=== PATIENT | female | born 1960 | race Caucasian/White ===

== ENCOUNTER 2018-05-12 19:19 | Inpatient (IN) | payer OTHER ==
--- OUTSIDE RECORDS SUMMARY | 2018-05-12 19:22 | XMS REPORT | Clinical Summary ---
:1960 Author Organization [facility] Address [address] [place] [address] Care Team Providers Name Role Phone Ron Xiong MD Primary Care Provider Allergies Active Allergy Reactions Severity Noted Date Comments Adhesive Tape-Silicones Rash Low 10/18/2015 Medications Medication Sig Dispensed Refills Start Date End Date Status glimepiride (AMARYL) Take 4 mg by 4 08/27/2015 Active 4 MG tablet mouth every morning. TOUJEO SOLOSTAR 300 Inject 12 3 09/23/2015 Active unit/mL (1.5 mL) Units under insulin pen the skin every evening. metFORMIN Take 500 mg 0 Active (GLUCOPHAGE) 500 MG by mouth 2 tablet (two) times a day with meals. ASCORBATE CALCIUM Take by 0 Active (VITAMIN C ORAL) mouth. FERROUS FUMARATE Take by 0 Active (IRON ORAL) mouth. CHOLECALCIFEROL, Take by 0 Active VITAMIN D3, (VITAMIN mouth. D3 ORAL) rosuvastatin 0 05/01/2018 Active (CRESTOR) 5 MG tablet semaglutide INJECT 1 MG 0 11/15/2017 Active (OZEMPIC) 1 mg/0.75 ONCE A WEEK mL (2 mg/1.5 mL) pen injector lisinopril Take 10 mg by 1 03/14/2018 Active (PRINIVIL,ZESTRIL) mouth daily. 10 mg tablet empagliflozin 25 mg Take by 0 Active tablet mouth. FARXIGA 10 mg tablet Take 1 tablet 3 09/21/2015 05/06/2018 Discontinued by mouth nightly. TRULICITY 1.5 mg/0.5 Inject 0.75 2 09/28/2015 05/06/2018 Discontinued mL pen injector Units under the skin once a week. ON Mondays Active Problems Problem Noted Date History of breast cancer 11/27/2015 Encounters Date Type Specialty Care Team Description 05/12/2018 Orders Only General Surgery Amanda Goncalves MA 05/06/2018 Office Visit General Surgery Ron Xiong MD Morbid obesity due to excess calories (HCC) (Primary Dx); Essential hypertension; Type 2 diabetes mellitus without complication, without long-term current use of insulin (HCC) 05/06/2018 Orders Only General Surgery Amanda Goncalves MA 05/06/2018 Orders Only General Surgery Amanda Goncalves MA Obesity (BMI 30-39.9 ) (Primary Dx); Type 2 diabetes mellitus with hyperosmolarity without coma, without long-term current use of insulin (HCC); Hyperlipidemia associated with type 2 diabetes mellitus (HCC); Essential hypertension, benign after 05/11/2017 Family History Medical History Relation Name Comments Diabetes Father Heart disease Father Cancer Mother Relation Name Status Comments Brother Alive heart attack Father Mother non hodgkins Social History Tobacco Use Types Packs/Day Years Used Date Never Smoker Smokeless Tobacco: Never Used Alcohol Use Drinks/Week oz/Week Comments Yes 3 drinks per week Sex Assigned at Date Recorded Not on file Job Start Date Occupation Industry Not on file Not on file Not on file Travel History Travel Start Travel End No recent travel history available. Last Filed Vital Signs Vital Sign Reading Time Taken Blood Pressure 151/86 05/06/2018 9:25 AM [employer] Pulse 69 05/06/2018 9:25 AM [employer] Temperature 36.6 C (97.9 F) 05/06/2018 9:25 AM [employer] Respiratory Rate 16 05/06/2018 9:25 AM [employer] Oxygen Saturation 97% 05/06/2018 9:25 AM [employer] Inhaled Oxygen Concentration - - Weight 105 kg (232 lb 4.8 oz) 05/06/2018 9:25 AM [employer] Height 162.6 cm (5' 4") 05/06/2018 9:25 AM [employer] Body Mass Index 39.87 05/06/2018 9:25 AM [employer] Plan of Treatment Date Type Specialty Care Team Description 06/01/2018 Consult Weight Management Ron Xiong MD [address] [facility] [address] [place] [id number] Dona Hooker 06/01/2018 Consult Weight Management Ron Xiong MD [address] [address] [phone] Health Maintenance Due Date Last Done Comments DIABETIC RETINAL EYE EXAM 1960 DIABETIC FOOT EXAM 12/30/1969 URINE MICROALBUMIN 12/30/1969 CERVICAL CANCER SCREENING 12/30/1980 COLON CANCER SCREENING 12/30/2009 SHINGLES VACCINES (1 of 2) 12/30/2009 BREAST CANCER SCREENING 03/29/2015 03/29/2013 INFLUENZA VACCINE 10/27/2017 Procedures Procedure Name Priority Date/Time Associated Diagnosis Comments US ABDOMEN COMPLETE Routine 05/11/2018 11:00 AM Obesity (BMI Results for this [employer] 30-39.9) procedure are in the results section. after 05/11/2017 Results US Abdomen Complete (05/11/2018 11:00 AM [employer]) Narrative Performed At EXAM: US ABDOMEN COMPLETE [facility] CLINICAL HISTORY:E66.9 Obesityunspecified, preop evaluation COMPARISON: CT abdomen, 07/27/2014 TECHNIQUE: Complete abdominal ultrasound obtained. FINDINGS: Diffuse moderate fatty liver, new from prior. No suspicious hepatic lesion. Mild focal sparing adjacent to gallbladder. .Numerous stones in the gallbladder measuring up to 2.5 cm. No evidence of acute cholecystitis. .Gallbladder is borderline distended, likely from fasting. Common bile duct 6.5 mm, borderline dilated. Main portal vein is patent and normal in size, 12 mm. . A 0.9 cm hypoechoic lesion in the head of pancreas, image 1536, was not evident on 2014 CT. Further evaluation by pancreas focus CT abdomen with and without IV contrast is advised. The majority of the remainder the pancreas is obscured by bowel gas. As a result, the pancreatic duct cannot be adequately assessed on this exam.obscured by bowel gas.Spleen demonstrates nothing unusual. Renal survey images show kidneys measure 11.8cm on the right and 11.2cm on the left with no hydronephrosis on either side. Visualized portions of abdominal aorta and IVC unremarkable.No ascites or pleural effusion identified. IMPRESSION: 1. Indeterminant 0.9 cm pancreatic head lesion, pancreas cancer is not excluded, and further evaluation by CT abdomen with and without IV contrast per pancreas protocol is recommended. 2.Moderate fatty liver. Cholelithiasis without evidence of acute cholecystitis. [id number] Procedure Note Interface, Radiology Results Incoming - 05/11/2018 11:47 AM [employer] EXAM: US ABDOMEN COMPLETE CLINICAL HISTORY: E66.9 Obesity unspecified, preop evaluation COMPARISON: CT abdomen, 07/27/2014 TECHNIQUE: Complete abdominal ultrasound obtained. FINDINGS: Diffuse moderate fatty liver, new from prior. No suspicious hepatic lesion. Mild focal sparing adjacent to gallbladder. . Numerous stones in the gallbladder measuring up to 2.5 cm. No evidence of acute cholecystitis. . Gallbladder is borderline distended, likely from fasting. Common bile duct 6.5 mm, borderline dilated. Main portal vein is patent and normal in size, 12 mm. . A 0.9 cm hypoechoic lesion in the head of pancreas, image 1536, was not evident on 2014 CT. Further evaluation by pancreas focus CT abdomen with and without IV contrast is advised. The majority of the remainder the pancreas is obscured by bowel gas. As a result, the pancreatic duct cannot be adequately assessed on this exam. obscured by bowel gas. Spleen demonstrates nothing unusual. Renal survey images show kidneys measure 11.8 cm on the right and 11.2 cm on the left with no hydronephrosis on either side. Visualized portions of abdominal aorta and IVC unremarkable. No ascites or pleural effusion identified. IMPRESSION: 1. Indeterminant 0.9 cm pancreatic head lesion, pancreas cancer is not excluded, and further evaluation by CT abdomen with and without IV contrast per pancreas protocol is recommended. 2. Moderate fatty liver. Cholelithiasis without evidence of acute cholecystitis. [id number] Performing Organization Address City/State/Zipcode Phone Number [facility] [address] [place] [address] after 05/11/2017 Insurance Payer Benefit Plan / Group Subscriber ID Type Phone Address [facility] UMR-[id number] MULTISTATE IEBP xxxxxxxxxxxx PPO Jo Ann Conner Reconstructive Self 1960 [address] Surgery [address] (Home) [place] [address] Advance Directives Patient has advance care planning documents on file. For more information, please contact:[id number] [place] [address]
[2018-05-12 20:37] LABS: Absolute Monocytes 0.3 K/uL (0.1-1.3); Absolute Neutrophil 12.7 K/uL (1.8-8.0); Basophils % 0.3 % (0-1.3); Lymphocytes % 7.2 % (15.3-44.8); Monocytes % 2.2 % (3.3-12.3); RBC Red Blood Cell Count 5.36 M/uL (3.86-4.86)
[2018-05-12] MEDS ORDERED: MORPHINE 4 MG/ML SYR ONE (20:42)
[2018-05-12] MEDS ORDERED: PIPER/TAZO/NS 3.375gm 3.375 GM/100 ML BAG ONE (20:42)
[2018-05-12] MEDS ORDERED: ONDANSETRON 4 MG/2 ML VIAL ONE (20:42)
[2018-05-12 20:59] LABS: Albumin 4.2 g/dL (3.4-5.0); Bilirubin Total 0.6 mg/dL (0.2-1.0); Potassium 3.6 mmol/L (3.5-5.1); Protein, Total 8.1 g/dL (6.4-8.2)
[2018-05-12 21:06] LABS: Blood Morphology Comment NOT SEEN (NOT SEEN); Platelet Estimate ADEQ
--- NOTE | 2018-05-12 21:08 | EDPHYS ---
Physician Documentation [facility] Name: Jo Ann Conner Age: 57 yrs Sex: Female : 1960 Arrival Date: 05/12/2018 Time: 19:29 Bed 26 Private MD: ED Physician Rikki De La Torre HPI: 05/12 20:09 This 57 yrs old Female presents to ER via Unassigned with complaints of Hand jmm Swelling, Hand Pain. 20:09 The patient or guardian complains of pain, that is acute, swelling. Onset: The jmm symptoms/episode began/occurred today. Treatment prior to arrival includes: no previous treatment. This is a 57 year old female with a history of lymphedema that presents to the ED with complaints of swelling, redness and pain to her right arm beginning earlier today. Patient states she has been treated for cellulitis in the past. . Historical: - Allergies: 21:24 No Known Allergies; ca1 - Home Meds: 21:24 lisinopril 10 mg Oral tab 1 tab once daily [Active]; rosuvastatin 5 mg oral tab 2 tabs ca1 once daily [Active]; glimepiride 4 mg Oral tab 1 tab once daily [Active]; Ozempic 1 Mg dose pen pen 1 Injector once a week [Active]; Toujeo Solostar 300u/ml 26 unit nightly [Active]; - PMHx: 21:24 Hyperlipidemia; Hypertension; Diabetes - IDDM; Breast Cancer; ca1 - PSHx: 21:24 Hysterectomy; Mastectomy, Left; Mastectomy, Right; ca1 - Immunization history:: Pneumococcal vaccine is up to date, Flu vaccine is up to date. - Social history:: Smoking status: Patient/guardian denies using tobacco. - Ebola Screening: : Patient negative for fever greater than or equal to 101.5 degrees Fahrenheit, and additional compatible Ebola Virus Disease symptoms Patient denies exposure to infectious person Patient denies travel to an Ebola-affected area in the 21 days before illness onset. ROS: 20:09 Constitutional: Negative for fever, chills, and weight loss, Cardiovascular: Negative jmm for chest pain, palpitations, and edema, Respiratory: Negative for shortness of breath, cough, wheezing, and pleuritic chest pain. 20:09 MS/extremity: Positive for erythema, swelling. 20:09 Skin: Positive for erythema. 20:09 All other systems are negative. Exam: 20:09 Head/Face: atraumatic. Eyes: EOMI, no conjunctival erythema appreciated ENT: Moist [facility] Mucus Membranes Neck: Trachea midline, Supple Chest/axilla: Normal chest wall appearance and motion. Cardiovascular: Regular rate and rhythm. No edema appreciated Respiratory: Normal respirations, no respiratory distress appreciated Abdomen/GI: Non distended, soft Back: Normal ROM 20:09 Constitutional: The patient appears alert, awake, anxious, uncomfortable. 20:09 Neck: ROM/movement: is normal. 20:09 Respiratory: the patient does not display signs of respiratory distress, Respirations: normal, Breath sounds: are clear throughout. 20:09 Musculoskeletal/extremity: edema appreciated to the right forearm, full radial pulse, NVI. 20:09 Skin: erythema noted to the right hand extending to the entire forearm, diffusely tender to palpation. 20:09 Neuro: Orientation: is normal, Mentation: is normal, Memory: is normal. 20:09 Psych: Behavior/mood is pleasant, cooperative, anxious. Vital Signs: 20:32 BP 150 / 102; Pulse 141; Resp 18 S; Pulse Ox 100% on R/A; rv 21:51 BP 132 / 78; Pulse 126; Resp 18; Temp 98.6; Pulse Ox 95% ; lt1 22:30 BP 108 / 74; Pulse 118; Resp 21; Pulse Ox 100% ; rv 23:21 Weight 104.33 kg; rv MDM: 20:09 Patient medically screened. [facility] 21:05 Data reviewed: vital signs, nurses notes. Counseling: I had a detailed discussion with [facility] the patient and/or guardian regarding: the historical points, exam findings, and any diagnostic results supporting the discharge/admit diagnosis, lab results, radiology results, the need for further work-up and treatment in the hospital. ED course: I discussed the patient with Dr. Cabezas whom accepted admission. . 05/12 20:10 Order name: CBC with Diff; Complete Time: 21:39 [facility] 05/12 20:10 Order name: CMP; Complete Time: 21:02 [facility] 05/12 20:10 Order name: Procalcitonin; Complete Time: 21:39 [facility] 05/12 20:10 Order name: Lactate; Complete Time: 21:03 [facility] 05/12 20:10 Order name: Blood Culture Adult (2) [facility] 05/12 20:10 Order name: US Extremity Venous Unilateral Ltd [facility] 05/12 20:17 Order name: UPPER EXTREMITY VENOUS UNILATE [facility] 05/12 21:01 Order name: Manual Differential; Complete Time: 21:39 [facility] 05/12 22:13 Order name: Basic Metabolic Panel [facility] 05/12 22:13 Order name: Basic Metabolic Panel [facility] 05/12 22:13 Order name: CBC with Automated Diff [facility] 05/12 22:13 Order name: CBC with Automated Diff [facility] 05/12 20:10 Order name: Saline Lock; Complete Time: 20:47 [facility] 05/12 22:13 Order name: CONS Pharmacy Consult [facility] 05/12 22:13 Order name: Regular EDMS Administered Medications: 20:20 Drug: Zosyn 3.375 grams Route: IVPB; Infused Over: 60 mins; Site: left antecubital; rv 21:57 Follow up: IV Status: Completed infusion rv 20:20 Drug: morphine 4 mg Route: IVP; Site: left antecubital; rv 21:57 Follow up: Response: No adverse reaction rv 21:57 Follow up: Response: Pain is decreased rv 20:20 Drug: Zofran 4 mg Route: IVP; Site: left antecubital; rv 21:57 Follow up: Response: No adverse reaction rv 21:56 Drug: vancoMYCIN 1 grams Route: IVPB; Infused Over: 2 hrs; Site: left antecubital; rv 23:23 Follow up: IV Status: Completed infusion rv 22:30 Drug: NS 0.9% (30 ml/kg) 30 ml/kg Route: IV; Rate: bolus; Site: left antecubital; rv 23:22 Follow up: IV Status: Infusion continued upon admission rv Disposition: 05/13 06:19 Co-signature as Attending Physician, Rikki De La Torre MD I agree with the assessment and 4 plan of care. Disposition: 05/12/18 21:07 Hospitalization ordered by Milan Cabezas for Observation. Preliminary diagnosis is Cellulitis of right upper limb. - Bed requested for Telemetry/MedSurg (observation). - Status is Observation. rv - Condition is Stable. - Problem is an acute exacerbation. - Symptoms are unchanged. UTI on Admission? No Signatures: Dispatcher [employer] EDMS Sue Ferreira RN RN mw Anand Odonnell PA PA jmm Wadley, Terrence, MD MD tw4 Ilya Patel, RN RN rv Sailaja Dumont RN RN ca1 Corrections: (The following items were deleted from the chart) 05/12 21:01 20:40 CBC Smear Scan ordered. EDMS EDMS 21:25 21:24 Immunization history: Pneumococcal vaccine is up to date, Flu vaccine is up to ca1 date. ca1 21:25 21:24 Social history: Smoking status: Patient/guardian denies using tobacco, ca1 ca1 :25 21:24 Ebola Screening: Patient negative for fever greater than or equal to 101.5 ca1 degrees Fahrenheit, and additional compatible Ebola Virus Disease symptoms Patient denies exposure to infectious person Patient denies travel to an Ebola-affected area in the 21 days before illness onset ca1 22:27 21:07 Hospitalization Ordered by Milan Cabezas MD for Observation. Preliminary mw diagnosis is Cellulitis of right upper limb. Bed requested for Telemetry/MedSurg (observation). Status is Observation. Condition is Stable. Problem is an acute exacerbation. Symptoms are unchanged. UTI on Admission? No. [facility] 23:48 22:27 05/12/2018 21:07 Hospitalization Ordered by Milan Cabezas MD for Observation. rv Preliminary diagnosis is Cellulitis of right upper limb. Bed requested for Telemetry/MedSurg (observation). Status is Observation. Condition is Stable. Problem is an acute exacerbation. Symptoms are unchanged. UTI on Admission? No. mw
--- NOTE | 2018-05-12 21:08 | ER ---
Nurse's Notes [facility] Name: Jo Ann Conner Age: 57 yrs Sex: Female : 1960 Arrival Date: 05/12/2018 Time: 19:29 Bed 26 Private MD: Diagnosis: Cellulitis of right upper limb Presentation: 05/12 19:50 Presenting complaint: Patient states: "I have lymphadema on my R arm. It is swelling ca1 and painful". Transition of care: patient was not received from another setting of care. Onset of symptoms was May 12, 2018. 19:50 Method Of Arrival: Wheelchair ca1 19:50 Acuity: JHOANA 3 ca1 21:13 Risk Assessment: Do you want to hurt yourself or someone else? Patient reports no rv desire to harm self or others. Initial Sepsis Screen: Does the patient meet any 2 criteria? No. Patient's initial sepsis screen is negative. Does the patient have a suspected source of infection? No. Patient's initial sepsis screen is negative. Care prior to arrival: None. Historical: - Allergies: 21:24 No Known Allergies; ca1 - Home Meds: 21:24 lisinopril 10 mg Oral tab 1 tab once daily [Active]; rosuvastatin 5 mg oral tab 2 tabs ca1 once daily [Active]; glimepiride 4 mg Oral tab 1 tab once daily [Active]; Ozempic 1 Mg dose pen pen 1 Injector once a week [Active]; Toujeo Solostar 300u/ml 26 unit nightly [Active]; - PMHx: 21:24 Hyperlipidemia; Hypertension; Diabetes - IDDM; Breast Cancer; ca1 - PSHx: 21:24 Hysterectomy; Mastectomy, Left; Mastectomy, Right; ca1 - Immunization history:: Pneumococcal vaccine is up to date, Flu vaccine is up to date. - Social history:: Smoking status: Patient/guardian denies using tobacco. - Ebola Screening: : Patient negative for fever greater than or equal to 101.5 degrees Fahrenheit, and additional compatible Ebola Virus Disease symptoms Patient denies exposure to infectious person Patient denies travel to an Ebola-affected area in the 21 days before illness onset. Screenin:13 Abuse screen: Denies threats or abuse. Denies injuries from another. Nutritional rv screening: No deficits noted. Tuberculosis screening: No symptoms or risk factors identified. Fall Risk None identified. Assessment: 21:12 General: Appears in no apparent distress. comfortable, Behavior is calm, cooperative. rv Pain: Complains of pain in right arm. Neuro: Level of Consciousness is awake, alert, obeys commands, Oriented to person, place, time, situation. Cardiovascular: Capillary refill < 3 seconds. Respiratory: Airway is patent. GI: No signs and/or symptoms were reported involving the gastrointestinal system. : No signs and/or symptoms were reported regarding the genitourinary system. EENT: No signs and/or symptoms were reported regarding the EENT system. Derm: Skin is intact. Musculoskeletal: No signs and/or symptoms reported regarding the musculoskeletal system. Vital Signs: 20:32 BP 150 / 102; Pulse 141; Resp 18 S; Pulse Ox 100% on R/A; rv 21:51 BP 132 / 78; Pulse 126; Resp 18; Temp 98.6; Pulse Ox 95% ; lt1 22:30 BP 108 / 74; Pulse 118; Resp 21; Pulse Ox 100% ; rv 23:21 Weight 104.33 kg; rv ED Course: 19:29 Patient arrived in ED. es 19:50 Arm band placed on right wrist. EKG completed in triage. Results shown to MD. ca1 19:56 Anand Odonnell PA is PHCP. jmm 19:56 Rikki De La Torre MD is Attending Physician. jmm 20:13 Sailaja Dumont, TATE is Primary Nurse. ca1 20:20 Inserted saline lock: 20 gauge in left antecubital area, using aseptic technique. Blood rv collected. 20:47 Blood Culture Adult (2) Sent. rv 20:50 EKG completed in triage. Results shown to MD. ca1 21:04 UPPER EXTREMITY VENOUS UNILATE In Process Unspecified. EDMS 21:07 Milan Cabezas MD is Hospitalizing Provider. jmm 21:13 Patient has correct armband on for positive identification. Bed in low position. Call rv light in reach. Side rails up X2. Adult w/ patient. conveyor monitor on. Pulse ox on. NIBP on. 21:17 Triage completed. ca1 23:47 No provider procedures requiring assistance completed. Patient admitted, IV remains in rv place. intact. Administered Medications: 20:20 Drug: Zosyn 3.375 grams Route: IVPB; Infused Over: 60 mins; Site: left antecubital; rv 21:57 Follow up: IV Status: Completed infusion rv 20:20 Drug: morphine 4 mg Route: IVP; Site: left antecubital; rv 21:57 Follow up: Response: No adverse reaction rv 21:57 Follow up: Response: Pain is decreased rv 20:20 Drug: Zofran 4 mg Route: IVP; Site: left antecubital; rv 21:57 Follow up: Response: No adverse reaction rv 21:56 Drug: vancoMYCIN 1 grams Route: IVPB; Infused Over: 2 hrs; Site: left antecubital; rv 23:23 Follow up: IV Status: Completed infusion rv 22:30 Drug: NS 0.9% (30 ml/kg) 30 ml/kg Route: IV; Rate: bolus; Site: left antecubital; rv 23:22 Follow up: IV Status: Infusion continued upon admission rv Outcome: 21:07 Decision to Hospitalize by Provider. anastasia 23:47 Admitted to Tele accompanied by tech, via wheelchair, room 413, with chart, Report rv called to BRYCE YBARRA 23:47 Condition: good 23:47 Discharge instructions given to patient, Instructed on the need for admit, Demonstrated understanding of instructions. 23:48 Patient left the ED. rv Signatures: Dispatcher [employer] EDMS Anand Odonnell PA PA jmm Salyer, Edna es Vicente, Ronaldo RN RN Sailaja Judd RN RN ca1 Tran, Leah lt1 Corrections: (The following items were deleted from the chart) 21:25 21:24 Immunization history: Pneumococcal vaccine is up to date, Flu vaccine is up to ca1 date. ca1 21:25 21:24 Social history: Smoking status: Patient/guardian denies using tobacco, ca1 ca1 21:25 21:24 Ebola Screening: Patient negative for fever greater than or equal to 101.5 ca1 degrees Fahrenheit, and additional compatible Ebola Virus Disease symptoms Patient denies exposure to infectious person Patient denies travel to an Ebola-affected area in the 21 days before illness onset ca1 21:27 20:50 Arm band placed on right wrist. ca1 ca1 21:27 20:50 EKG completed in triage. Results shown to MD. ca1 ca1
[2018-05-12] MEDS ORDERED: VANCOMYCIN 1 GM/250 ML BAG ONE (21:56)
[2018-05-12] MEDS ORDERED: HYDROMORPHONE HCL 1 MG/ML INJ IV PRN (22:08)
[2018-05-12] MEDS ORDERED: NA CHLORIDE 0.9% 1,000 ML IV SCH (23:00)
[2018-05-13] MEDS: AMPICILLIN/SULBACT 3 GM in NA CHLORIDE 0.9% 100 ML IVPB SCH ×3 (04:00→17:39)
[2018-05-13] MEDS ORDERED: AMPICILLIN/SULBACTAM 3GM/VIAL ONE (04:51)
[2018-05-13] MEDS: ONDANSETRON 4 MG/2 ML VIAL IV PRN ×2 (04:53→16:53)
[2018-05-13 04:56] LABS: Urine Appearance CLEAR; Urine Bilirubin NEGATIVE (NEG); Urine Blood NEGATIVE (NEG); Urine Color YELLOW; Urine Glucose 3+ (NEG); Urine Protein NEGATIVE (NEG); Urine Specific Gravity >=1.030 (1.005-1.030); Urine Urobilinogen 0.2 mg/dL (0.2-1.0)
[2018-05-13] MEDS ORDERED: NA CHLORIDE 0.9% 100 ML IV ONE (05:02)
[2018-05-13 05:20] LABS: Urine Microscopic Reflex NO UMIC
[2018-05-13 06:01] LABS: Absolute Lymphocytes (CBC) 2.2 K/uL (0.7-4.9); Absolute Monocytes 0.5 K/uL (0.1-1.3); Absolute Neutrophil 15.8 K/uL (1.8-8.0); Basophils % 0.3 % (0-1.3); Hematocrit 41.8 % (36.0-45.0); Lymphocytes % 11.8 % (15.3-44.8); MPV 10.5 fL (7.6-11.3); Monocytes % 2.9 % (3.3-12.3); RBC Red Blood Cell Count 4.88 M/uL (3.86-4.86)
--- NOTE | 2018-05-13 10:07 | RAD REPORT ---
EXAM DESCRIPTION: - UPPER EXTREMITY VENOUS UNILATE - 05/12/2018 9:07 pm CLINICAL HISTORY: Right arm pain and swelling COMPARISON: None. TECHNIQUE: Real-time sonographic evaluation of the right upper extremity deep venous systems was per formed. FINDINGS: Normal compressibility, flow augmentation, phasic flow and spontaneous flow are identified in the right upper extremity deep venous system. No intraluminal filling defects seen. Internal jugu lar and subclavian veins are normal as well. IMPRESSION: No DVT in the right upper extremity.
[2018-05-13] MEDS: ACETAMINOPHEN 500 MG TAB PO PRN ×3 (10:31→22:32)
[2018-05-13] MEDS ORDERED: GLUCAGON 1 MG/VIAL IM PRN (10:45)
[2018-05-13] MEDS ORDERED: D50W 25 GM/50 ML SYRINGE IV PRN (10:45)
--- NOTE | 2018-05-13 11:47 | P.HP ---
Certification for Inpatient Patient admitted to: Inpatient With expected LOS: >2 Midnights Patient will require the following post-hospital care: None Practitioner: I am a practitioner with admitting privileges, knowledge of patient current condition, hospital course, and medical plan of care. Services: Services provided to patient in accordance with Admission requirements found in Title 42 Section 412.3 of the Code of Federal Regulations Patient History Date of Service: 05/12/18 Reason for admission: Cellulitis of the right upper extremity History of Present Illness: Patient is a 57-year-old female who has history of breast cancer status post mastectomy of the right breast. Patient has developed lymphedema of the right upper extremity. She has been dealing with this for many years. Her right upper extremity is more swollen than usual. She deals significant erythema and edema of that right arm. Patient has a cellulitis. Will go ahead and admit her to the hospital for IV antibiotic therapy. She has significant edema. Is pitting. She will need admission and will need to get the swelling down with diuresing and elevation. Allergies No Known Allergies Allergy (Verified 05/13/18 00:05) Home Medications: Cholecalciferol (Vitamin D3) [Vitamin D 1000 Iu Tab*] 2,000 unit PO DAILY Cyanocobalamin (Vitamin B-12) [Vitamin B12] 1 tab PO DAILY 05/13/18 Empagliflozin [Jardiance] 1 tab PO DAILY 05/13/18 Insulin Glargine,Hum.rec.anlog [Toujeo Solostar] 26 units SQ DAILY 05/13/18 Lisinopril 1 tab PO BEDTIME 05/13/18 Pioglitazone HCl 1 tab PO DAILY 05/13/18 Rosuvastatin Calcium 1 tab PO BEDTIME 05/13/18 Semaglutide [Ozempic] 1 mg SQ SEECOM 05/13/18 - Past Medical/Surgical History Has patient received pneumonia vaccine in the past: Yes Diabetic: Yes -: Breast Cancer -: HTN -: Hyperlipidemia -: Diabetes IDDM -: Bilateral Mastectomy -: Hysterectomy - Family History Father Medical History: Diabetes, Stroke Mother Medical History: Diabetes, Cancer Notes: Non Hodgkinds Lypmphoma Brother Medical History: Other (see notes) Notes: Heart Problems - Social History Smoking Status: Never smoker CD- Drugs: No Caffeine use: Yes Place of Residence: Home Review of Systems 10-point ROS is otherwise unremarkable Physical Examination - Vital Signs Temperature: 98.7 F Blood Pressure: 125/65 Pulse: 98 Respirations: 20 Pulse Ox (%): 96 - Physical Exam General: Alert, In no apparent distress, Oriented x3 HEENT: Atraumatic, PERRLA, Mucous membr. moist/pink, EOMI, Sclerae nonicteric Neck: Supple, 2+ carotid pulse no bruit, No LAD, Without JVD or thyroid abnormality Respiratory: Clear to auscultation bilaterally, Normal air movement Cardiovascular: Regular rate/rhythm, Normal S1 S2 Gastrointestinal: Normal bowel sounds, Soft and benign, No tenderness Musculoskeletal: No tenderness Integumentary: Skin breakdown, Tenderness/swelling, Erythema Neurological: Normal gait, Normal speech, Normal strength at 5/5 x4 extr, Normal tone, Normal affect Lymphatics: No axilla or inguinal lymphadenopathy - Studies Laboratory Data (last 24 hrs) 05/12/18 20:25: Sodium 144, Potassium 3.6, BUN 18, Creatinine 0.97, Glucose 244 H, Total Bilirubin 0.6, AST 11 L, ALT 30, Alkaline Phosphatase 115 05/12/18 20:25: WBC 14.0 H, Hgb 15.2 H, Hct 46.0 H, Plt Count 198 Assessment & Plan - Problems (Diagnosis) (1) History of breast cancer Current Visit: Yes Status: Acute (2) History of mastectomy Current Visit: Yes Status: Acute (3) Lymphedema of right upper extremity Current Visit: Yes Status: Acute (4) Cellulitis Current Visit: Yes Status: Acute - Plan 1. Continue with IV antibiotic 2. Continue with elevation and diuresing 3. surgical consultation If no improvement 4. Gentle IV hydration 5. Monitor CBC 6. Strict blood sugar monitoring 7. Pain control 8. GI and DVT prophylaxis - Advance Directives Does patient have a Living Will: No Does patient have a Durable POA for Healthcare: No
[2018-05-13] MEDS: INSULIN -REGULAR HUMAN 50 UNIT/0.5 ML ML SQ SCH ×3 (12:09→20:00)
[2018-05-13 15:23] LABS: Bilirubin Total 0.5 mg/dL (0.2-1.0); Potassium 3.6 mmol/L (3.5-5.1); Protein, Total 6.6 g/dL (6.4-8.2)
[2018-05-13 15:30] LABS: Absolute Lymphocytes (CBC) 1.6 K/uL (0.7-4.9); Absolute Monocytes 0.5 K/uL (0.1-1.3); Absolute Neutrophil 13.5 K/uL (1.8-8.0); Basophils % 0.2 % (0-1.3); Eosinophils % 0.2 % (0-4.4); Hematocrit 37.9 % (36.0-45.0); Lymphocytes % 10.5 % (15.3-44.8); MPV 10.8 fL (7.6-11.3); Monocytes % 3.2 % (3.3-12.3); RBC Red Blood Cell Count 4.37 M/uL (3.86-4.86)
[2018-05-14] MEDS: AMPICILLIN/SULBACT 3 GM in NA CHLORIDE 0.9% 100 ML IVPB SCH ×5 (00:32→23:29)
[2018-05-14] MEDS ORDERED: SEMAGLUTIDE 1 MG SQ SCH (06:30)
--- NOTE | 2018-05-14 06:32 | P.PN ---
Subjective Date of Service: 05/13/18 Chief Complaint: Cellulitis of the right upper extremity Subjective: Improving Still with significant erythema and edema. Slowly improving. Possible discharge tomorrow Review of Systems 10-point ROS is otherwise unremarkable Physical Examination - Vital Signs Temperature: 98.8 F Blood Pressure: 126/58 Pulse: 108 Respirations: 15 Pulse Ox (%): 95 - Physical Exam General: Alert, In no apparent distress, Oriented x3 HEENT: Atraumatic, PERRLA, EOMI Neck: Supple, JVD not distended Respiratory: Clear to auscultation bilaterally, Normal air movement Cardiovascular: Regular rate/rhythm, Normal S1 S2 Gastrointestinal: Normal bowel sounds, No tenderness Musculoskeletal: No tenderness Integumentary: Tenderness/swelling, Erythema Neurological: Normal speech, Normal tone, Normal affect Lymphatics: No axilla or inguinal lymphadenopathy - Studies Medications List Reviewed: Yes Assessment & Plan - Problems (Diagnosis) (1) Cellulitis Current Visit: Yes Status: Acute (2) History of breast cancer Current Visit: Yes Status: Acute (3) History of mastectomy Current Visit: Yes Status: Acute (4) Lymphedema of right upper extremity Current Visit: Yes Status: Acute - Plan Continue with current plan of care as mentioned below: 1. Continue with IV antibiotic 2. Continue with elevation and diuresing 3. surgical consultation If no improvement 4. Gentle IV hydration 5. Monitor CBC 6. Strict blood sugar monitoring 7. Pain control 8. GI and DVT prophylaxis Discharge Plan: Home Plan to discharge in: 48 Hours - Advance Directives Does patient have a Living Will: No Does patient have a Durable POA for Healthcare: No - Code Status/Comfort Care Code Status Assessed: Yes Code Status: Full Code Critical Care: No Time Spent Managing PTS Care (In Minutes): 30
[2018-05-14] MEDS ORDERED: VANCOMYCIN 1.25 GM in NA CHLORIDE 0.9% 250 ML IVPB SCH (07:00)
[2018-05-14] MEDS: INSULIN -REGULAR HUMAN 50 UNIT/0.5 ML ML SQ SCH ×5 (07:30→20:13)
[2018-05-14] MEDS ORDERED: VANCOMYCIN 1.75 GM in NA CHLORIDE 0.9% 500 ML IVPB SCH (08:00)
[2018-05-14] MEDS: CYANOCOBALAMIN 1,000 MCG TAB PO SCH (08:59)
[2018-05-14] MEDS: INSULIN GLARGINE 100 UNITS/ML SQ SCH (09:00)
[2018-05-14] MEDS: HOME MED 1 EA UNK (Empagliflozin [Jardiance] 1 TAB) PO SCH (09:00)
[2018-05-14] MEDS: VITAMIN D 1000 UNIT TAB PO SCH (09:00)
[2018-05-14] MEDS: PIOGLITAZONE 15 MG TAB PO SCH (09:39)
[2018-05-14] MEDS: VANCOMYCIN 1.75 GM in NA CHLORIDE 0.9% 500 ML IVPB SCH ×2 (09:39→20:13)
[2018-05-14] MEDS ORDERED: VANCOMYCIN 1 GM in NA CHLORIDE 0.9% 250 ML IVPB SCH (10:00)
[2018-05-14] MEDS ORDERED: ALBUMIN HUMAN 25% 100 ML IV ONE (10:09)
[2018-05-14] MEDS ORDERED: FUROSEMIDE 20 MG/ 2ML VIAL IV ONE (10:10)
--- NOTE | 2018-05-14 10:22 | P.PN ---
Subjective Date of Service: 05/14/18 Chief Complaint: Cellulitis of the right upper extremity Some improvement; having headache Review of Systems 10-point ROS is otherwise unremarkable Physical Examination - Vital Signs Temperature: 97.7 F Blood Pressure: 147/78 Pulse: 104 Respirations: 18 Pulse Ox (%): 94 - Physical Exam General: Alert, In no apparent distress, Oriented x3 Cardiovascular: Regular rate/rhythm, Normal S1 S2, Systolic murmur Gastrointestinal: Normal bowel sounds, Soft and benign, Non-distended, No tenderness Musculoskeletal: Swelling, Erythema, Tenderness - Studies Medications List Reviewed: Yes Assessment & Plan - Problems (Diagnosis) (1) Cellulitis Current Visit: Yes Status: Acute (2) History of breast cancer Current Visit: Yes Status: Acute (3) History of mastectomy Current Visit: Yes Status: Acute (4) Lymphedema of right upper extremity Current Visit: Yes Status: Acute - Plan Continue with current plan of care as mentioned below: 1. Continue with IV antibiotic 2. Continue with elevation and diuresing 3. surgical consultation If no improvement 4. Gentle IV hydration 5. Monitor CBC 6. Strict blood sugar monitoring 7. Pain control 8. GI and DVT prophylaxis Discharge Plan: Home Plan to discharge in: 24 Hours - Advance Directives Does patient have a Living Will: No Does patient have a Durable POA for Healthcare: No - Code Status/Comfort Care Code Status: Full Code
[2018-05-14] MEDS: ONDANSETRON 4 MG/2 ML VIAL IV PRN (12:04)
[2018-05-14] MEDS ORDERED: LISINOPRIL 10 MG TAB PO SCH (21:00)
[2018-05-14] MEDS ORDERED: ROSUVASTATIN 10 MG TAB PO SCH (21:00)
[2018-05-15] MEDS: AMPICILLIN/SULBACT 3 GM in NA CHLORIDE 0.9% 100 ML IVPB SCH ×2 (05:18→13:24)
[2018-05-15 06:58] LABS: Albumin 2.8 g/dL (3.4-5.0); Bilirubin Total 0.3 mg/dL (0.2-1.0); Magnesium 2.1 mg/dL (1.8-2.4); Potassium 3.6 mmol/L (3.5-5.1); Protein, Total 6.6 g/dL (6.4-8.2)
[2018-05-15 07:31] LABS: Absolute Lymphocytes (CBC) 2.3 K/uL (0.7-4.9); Absolute Monocytes 0.6 K/uL (0.1-1.3); Absolute Neutrophil 4.7 K/uL (1.8-8.0); Basophils % 0.6 % (0-1.3); Eosinophils % 1.4 % (0-4.4); Hematocrit 36.1 % (36.0-45.0); MPV 10.2 fL (7.6-11.3); Monocytes % 7.3 % (3.3-12.3)
[2018-05-15] MEDS ORDERED: FUROSEMIDE 20 MG/ 2ML VIAL IV ONE (08:27)
[2018-05-15] MEDS ORDERED: ALBUMIN HUMAN 25% 50 ML IV ONE (08:27)
[2018-05-15] MEDS: HOME MED 1 EA UNK (Empagliflozin [Jardiance] 1 TAB) PO SCH (09:00)
--- NOTE | 2018-05-15 09:01 | P.DS ---
Discharge Date: 05/15/18 Disposition: ROUTINE DISCHARGE Discharge Condition: GOOD Reason for Admission: Cellulitis of the right upper extremity - Problems (1) Cellulitis Current Visit: Yes Status: Acute (2) History of breast cancer Current Visit: Yes Status: Acute (3) History of mastectomy Current Visit: Yes Status: Acute (4) Lymphedema of right upper extremity Current Visit: Yes Status: Acute Brief History of Present Illness: Patient is a 57-year-old female who has history of breast cancer status post mastectomy of the right breast. Patient has developed lymphedema of the right upper extremity. She has been dealing with this for many years. Her right upper extremity is more swollen than usual. She deals significant erythema and edema of that right arm. Patient has a cellulitis. Will go ahead and admit her to the hospital for IV antibiotic therapy. She has significant edema. Is pitting. She will need admission and will need to get the swelling down with diuresing and elevation. Vital Signs/Physical Exam: Temp Pulse Resp BP Pulse Ox 97.1 F 77 18 133/66 95 05/15/18 08:00 05/15/18 08:00 05/15/18 08:00 05/15/18 08:00 05/15/18 08:00 Laboratory Data at Discharge: WBC 7.8 K/uL (4.3-10.9) D 05/15/18 07:18 Hgb 12.4 g/dL (12.0-15.0) 05/15/18 07:18 Hct 36.1 % (36.0-45.0) 05/15/18 07:18 Plt Count 171 K/uL (152-406) 05/15/18 07:18 Sodium 144 mmol/L (136-145) 05/15/18 05:48 Potassium 3.6 mmol/L (3.5-5.1) 05/15/18 05:48 BUN 11 mg/dL (7-18) 05/15/18 05:48 Creatinine 0.69 mg/dL (0.55-1.3) 05/15/18 05:48 Glucose 233 mg/dL (74-106) H 05/15/18 05:48 Phosphorus 3.0 mg/dL (2.5-4.9) 05/15/18 05:48 Magnesium 2.1 mg/dL (1.8-2.4) 05/15/18 05:48 Total Bilirubin 0.3 mg/dL (0.2-1.0) 05/15/18 05:48 AST 8 U/L (15-37) L 05/15/18 05:48 ALT 17 U/L (12-78) 05/15/18 05:48 Alkaline Phosphatase 46 U/L (45-117) 05/15/18 05:48 Home Medications: Cholecalciferol (Vitamin D3) [Vitamin D 1000 Iu Tab*] 2,000 unit PO DAILY Cyanocobalamin (Vitamin B-12) [Vitamin B12] 1 tab PO DAILY 05/13/18 Empagliflozin [Jardiance] 1 tab PO DAILY 05/13/18 Insulin Glargine,Hum.rec.anlog [Toujeo Solostar] 26 units SQ DAILY 05/13/18 Lisinopril 1 tab PO BEDTIME 05/13/18 Pioglitazone HCl 1 tab PO DAILY 05/13/18 Rosuvastatin Calcium 1 tab PO BEDTIME 05/13/18 Semaglutide [Ozempic] 1 mg SQ SEECOM 05/13/18 Minocycline HCl 100 mg PO BID #20 capsule 05/15/18 Smz./Tmp. [Bactrim Ds 800 MG/160 MG] 1 tab PO BID #20 tab 05/15/18 New Medications: Minocycline HCl 100 mg PO BID #20 capsule Smz./Tmp. [Bactrim Ds 800 MG/160 MG] 1 tab PO BID #20 tab Patient Discharge Instructions: OK TO DC IV AND DC HOME. FOLLOW-UP WITH PRIMARY CARE PROVIDER IN 1-2 WEEKS. RETURN TO THE ER IF Symptoms worsen. CALL or TEXT DR. JACOBSON AT [phone] IF ANY QUESTIONS REGARDING HOSPITAL STAY. PLEASE CALL THE FLOOR AT [phone] IF ANY MEDICATION OR NURSING QUESTIONS. Diet: Regular Activity: Fall precautions
[2018-05-15] MEDS: CYANOCOBALAMIN 1,000 MCG TAB PO SCH (09:20)
[2018-05-15] MEDS: PIOGLITAZONE 15 MG TAB PO SCH (09:21)
[2018-05-15] MEDS: VITAMIN D 1000 UNIT TAB PO SCH (09:21)
[2018-05-15] MEDS: INSULIN GLARGINE 100 UNITS/ML SQ SCH (09:22)
[2018-05-15] MEDS: INSULIN -REGULAR HUMAN 50 UNIT/0.5 ML ML SQ SCH ×3 (09:23→17:13)
[2018-05-15] MEDS: VANCOMYCIN 1.75 GM in NA CHLORIDE 0.9% 500 ML IVPB SCH (11:05)
== END 2018-05-15 18:07 | disposition home or self-care (01) | DRG 603 ==
LOC: ER 19:19 → ERHOLD 22:09 → 4TH 23:16
PROVIDERS: ADMIT Hospitalist; ATTEND Family Medicine
DX: L03.113 Cellulitis of right upper limb (principal); I89.0 Lymphedema, not elsewhere classified; Z85.3 Personal history of malignant neoplasm of breast; Z90.13 Acquired absence of bilateral breasts and nipples; E78.5 Hyperlipidemia, unspecified; E11.8 Type 2 diabetes mellitus with unspecified complications; Z79.4 Long term (current) use of insulin; Z79.84 Long term (current) use of oral hypoglycemic drugs; I10 Essential (primary) hypertension
CPT/HCPCS: 36415; 80048; 80053; 80202; 81003; 82962; 83605; 83735; 84100; 84145; 85025; 87040; 93971; 96365; 96367; 96375; 99285; J0295; J1170; J1940; J2405; J2543; J3370; J7030; P9047

== ENCOUNTER 2019-05-19 07:17 | Inpatient (IN) | payer OTHER ==
--- OUTSIDE RECORDS SUMMARY | 2019-05-19 07:20 | XMS REPORT | Summary of Care ---
:[address] [facility] Address [address] [place] [address] Care Team Providers Name Role Phone Ramirez Hdez MD Unavailable Reason for Visit Reason Comments Follow-up Knee Pain right knee Encounter Details Date Type Department Care Team Description 11/24/2018 Office Visit [facility] Chidi Wilkins, Primary osteoarthritis Orthopaedic Surgery- PAC of right knee (Primary [place] [address], [address] [place] [id number] [phone] Allergies Active Allergy Reactions Severity Noted Date Comments Adhesive Tape-Silicones Rash Low 07/02/2016 documented as of this encounter (statuses as of 11/24/2018) Medications Medication Sig Dispensed Refills Start Date End Date Status FARXIGA 10 mg tablet Take 1 tablet by 3 06/04/2016 Active mouth daily. glimepiride 4 mg tablet Take 4 mg by 0 08/27/2015 Active mouth. metformin ER 500 mg 24 0 07/01/2016 Active hr tablet insulin glargine (TOUJEO inject 12 Units 0 09/23/2015 Active SOLOSTAR) 300 unit/mL under the skin. (1.5 mL) InPn calcium carbonate Take by mouth. 0 Active (CALCIUM 500 ORAL) cholecalciferol, vitamin Take by mouth. 0 Active D3, 1,000 unit tablet ferrous fumarate/iron ps Take by mouth. 0 Active cplx (FERROUS FUMARATE-IRON PS CMPLX ORAL) dulaglutide (TRULICITY) inject 0.75 0 09/28/2015 Active 1.5 mg/0.5 mL PnIj Units under the skin. dapagliflozin (FARXIGA) Take 1 tablet by 0 09/21/2015 Active 10 mg tablet mouth. glimepiride 4 mg tablet Take 4 mg by 0 08/27/2015 Active mouth. metFORMIN 500 mg tablet Take 500 mg by 0 Active mouth. insulin glargine (TOUJEO inject 12 Units 0 09/23/2015 Active SOLOSTAR U-300 INSULIN) under the skin. 300 unit/mL (1.5 mL) InPn FREESTYLE LITE STRIPS USE 2 TIMES A 3 09/22/2017 Active strip DAY E11.9 empagliflozin Take by mouth. 0 Active (JARDIANCE) 25 mg Tab OZEMPIC 1 mg/0.75 mL (2 INJECT 1 MG ONCE 5 11/15/2017 Active mg/1.5 mL) PnIj A WEEK LISINOPRIL ORAL Take by mouth. 0 Active documented as of this encounter (statuses as of 11/24/2018) Active Problems No known active problemsdocumented as of this encounter (statuses as of 2018) Social History Tobacco Use Types Packs/Day Years Used Date Never Smoker Smokeless Tobacco: Never Used Alcohol Use Drinks/Week oz/Week Comments Yes 0 Standard drinks or equivalent 0.0 moderately Sex Assigned at Date Recorded Not on file Job Start Date Occupation Industry Not on file Not on file Not on file Travel History Travel Start Travel End No recent travel history available. documented as of this encounter Last Filed Vital Signs Vital Sign Reading Time Taken Comments Blood Pressure 144/92 11/24/2018 11:10 AM CDT Pulse - - Temperature - - Respiratory Rate - - Oxygen Saturation - - Inhaled Oxygen Concentration - - Weight 97.1 kg (214 lb) 11/24/2018 11:04 AM CDT Height 162.6 cm (5' 4") 11/24/2018 11:04 AM CDT Body Mass Index 36.73 11/24/2018 11:04 AM CDT documented in this encounter Progress Notes Chidi Wilkins, PAC - 11/24/2018 11:15 AM CDT Cc: Chief Complaint Patient presents with Follow-up Knee Pain right knee Jo Ann Conner is a 57 year old female. Past medical history of degenerative changes in the right knee she would like a cortisone injection today she had one previously that worked well for her Previous cortisone injection was on 12/15/2017 was the last injection in her right knee. Knee Pain The incident occurred more than 1 week ago. The incident occurred at home. There was no injury mechanism. The pain is present in the right knee. The quality of the pain is described as shooting. The pain is at a severity of 4/ 10. The pain is moderate. The pain has been fluctuating since onset. She hastried non-weight bearing and NSAIDs for the symptoms. The treatment provided moderate relief. Allergies Jo Ann is allergic to adhesive tape-silicones. Medications Outpatient Medications Prior to Visit Medication Sig Dispense Refill calcium carbonate (CALCIUM 500 ORAL) Take by mouth. cholecalciferol, vitamin D3, 1,000 unit tablet Take by mouth. dapagliflozin (FARXIGA) 10 mg tablet Take 1 tablet by mouth. dulaglutide (TRULICITY) 1.5 mg/0.5 mL PnIj inject 0.75 Units under the skin. empagliflozin (JARDIANCE) 25 mg Tab Take by mouth. ferrous fumarate/iron ps cplx (FERROUS FUMARATE-IRON PS CMPLX ORAL) Take by mouth. FREESTYLE LITE STRIPS strip USE 2 TIMES A DAY E11.9 3 glimepiride 4 mg tablet Take 4 mg by mouth. insulin glargine (TOUJEO SOLOSTAR U-300 INSULIN) 300 unit/mL (1.5 mL) InPn inject 12 Units underthe skin. LISINOPRIL ORAL Take by mouth. metFORMIN 500 mg tablet Take 500 mg by mouth. OZEMPIC 1 mg/0.75 mL (2 mg/1.5 mL) PnIj INJECT 1 MG ONCE A WEEK 5 FARXIGA 10 mg tablet Take 1 tablet by mouth daily. 3 glimepiride 4 mg tablet Take 4 mg by mouth. insulin glargine (TOUJEO SOLOSTAR) 300 unit/mL (1.5 mL) InPn inject 12 Units under the skin. metformin ER 500 mg 24 hr tablet No facility-administered medications prior to visit. Histories Past Medical History: Diagnosis Date Diabetes mellitus Hypertension Right knee pain Past Surgical History: Procedure Laterality Date BREAST SURGERY HYSTERECTOMY Social History Socioeconomic History Marital status: Single Spouse name: Not on file Number of children: Not on file Years of education: Not on file Highest education level: Not on file Occupational History Not on file Social Needs Financial resource strain: Not on file Food insecurity: Worry: Not on file Inability: Not on file Transportation needs: Medical: Not on file Non-medical: Not on file Tobacco Use Smoking status: Never Smoker Smokeless tobacco: Never Used Substance and Sexual Activity Alcohol use: Yes Alcohol/week: 0.0 oz Comment: moderately Drug use: No Sexual activity: Not Currently Lifestyle Physical activity: Days per week: Not on file Minutes per session: Not on file Stress: Not on file Relationships Social connections: Talks on phone: Not on file Gets together: Not on file Attends mosque service: Not on file Active member of club or organization: Not on file Attends meetings of clubs or organizations: Not on file Relationship status: Not on file Intimate partner violence: Fear of current or ex partner: Not on file Emotionally abused: Not on file Physically abused: Not on file Forced sexual activity: Not on file Other Topics Concern Not on file Social History Narrative Not on file Family History Problem Relation Age of Onset Diabetes Mother Cancer Mother Diabetes Father Hypertension Father Review of Systems Constitutional: Positive for activity change. HENT: Negative. Eyes: Negative. Respiratory: Negative. Breasts: Negative. Cardiovascular: Negative. Gastrointestinal: Negative. Genitourinary: Negative. Musculoskeletal: Negative. Skin: Negative. Neurological: Negative. Psychiatric/Behavioral: Negative. Endocrine: Endocrine negative Vital Signs BP (!) 144/92 | Ht 64" (162.6 cm) | Wt 97.1 kg (214 lb) | BMI 36.73 kg/m Physical Exam Physical Exam Constitutional: oriented to person, place, and time. appears well-developed and well-nourished. HENT: Head: Normocephalic and atraumatic. Right Ear: External ear normal. Left Ear: External ear normal. Eyes: Conjunctivae are normal. Neck: Normal range of motion. No strabismus Neck supple. Cardiovascular: Normal rate and regular rhythm. Pulmonary/Chest: Normal respiratory rate equal chest rise and fall in no apparent distress Abdominal: Abdomen nondistended nontender Neurological: alert and oriented to person, place, and time. No asymmetry Skin: Skin is warm and dry. Psychiatric: normal mood and affect. behavior is normal. Judgment and thought content normal. Nursing note and vitals reviewed. Knee pain Assessment/Plan Diagnosis 1. Primary osteoarthritis of right knee Plan Patient received an ultrasound guided injection of 1cc kenalog and 4cc lidocaine to the right knee. The knee was examined and the knee was marked with the needle In the middle of the lateral joint linejust lateral to the patellar tendon the knee was then prepped 3 times with Betadine in a Bullseye fashion and then once with alcohol allowing it to soak at least 20 seconds. Ultrasound guidance was used to direct the needle posterior to the fat pad and an injection was administered of 1 cc Kenalog with 4 cc 1% lidocaine without epinephrine without resistance. The skin was cleansed with alcohol and then dried with a sterile 4 x 4 and a sterile Band-Aid was applied patient tolerated procedure without difficulty. documented in this encounter Plan of Treatment Health Maintenance Due Date Last Done Comments HEPATITIS C (HCV) SCREEN 1960 DTaP,Tdap,and Td Vaccines (1 - 12/30/1978 Tdap) PAP SMEAR 12/30/1980 MAMMOGRAM 1999 COLONOSCOPY 12/30/2009 Zoster Recombinant Vaccine 12/30/2009 (SHINGRIX) (1 of 2) INFLUENZA VACCINE (#1) 2018 PNEUMOCOCCAL 0-64 YEARS COMBINED Aged Out No longer eligible based on SERIES patient's age to complete this topic documented as of this encounter Results Not on filedocumented in this encounter Visit Diagnoses Diagnosis Primary osteoarthritis of right knee - Primary Primary localized osteoarthrosis, lower leg documented in this encounter Insurance Payer Benefit Plan / Subscriber ID Effective Dates Phone Address Type Group [facility] [employer] CLAIMS [id number] 2013-Present PPO documented as of this encounter Advance Directives Type Date Recorded Patient Operations Officer Explanation Advance Directives and Living Will Power of Collection Clerk
--- OUTSIDE RECORDS SUMMARY | 2019-05-19 07:20 | XMS REPORT | Summary of Care ---
:1960 Author Organization [facility] Address [address] [place] [address] Care Team Providers Name Role Phone Ramirez Hdez MD Unavailable Reason for Visit Reason Comments Follow-up Knee Pain right knee Encounter Details Date Type Department Care Team Description 11/24/2018 Office Visit [facility] Chidi Wilkins, Primary osteoarthritis Orthopaedic Surgery- PAC of right knee (Primary [place] [address]) [address], [address] [place] [phone] [phone] Allergies Active Allergy Reactions Severity Noted Date [...] file Gets together: Not on file Attends anabaptist service: Not on file Active member of [...] ID Effective Dates Phone Address Type Group [facility] [employer] CLAIMS [id number] 2013-Present PPO documented as of this encounter Advance Directives Type Date Recorded Patient [employer] Explanation Advance Directives and Living Will Power of Practice Representative
--- OUTSIDE RECORDS SUMMARY | 2019-05-19 07:20 | XMS REPORT ---
:1960 Author [facility] Address [address] [place] [address] Dr. Burleson[address] [place] [address] Care Team Providers Name Role Phone Unavailable Unavailable Unavailable Problems This patient has no known problems. Allergies, Adverse Reactions, Alerts This patient has no known allergies or adverse reactions. Medications This patient has no known medications.
--- OUTSIDE RECORDS SUMMARY | 2019-05-19 07:20 | XMS REPORT | Summary of Care ---
:1960 Author Organization [facility] Address [address] [place] [address] Care Team Providers Name Role Phone Ramirez Hdez MD Unavailable Reason for Visit Reason Comments Follow-up Knee Pain right knee Encounter Details Date Type Department Care Team Description 11/24/2018 Office Visit [facility] Chidi Wilkins, Primary osteoarthritis Orthopaedic Surgery- PAC of right knee (Primary [place] [address]) [address], [address] [place] [address] [place] [phone] [phone] Allergies Active Allergy Reactions Severity Noted Date [...] file Gets together: Not on file Attends sikhism service: Not on file Active member of [...] ID Effective Dates Phone Address Type Group [facility] [employer] CLAIMS [id number] 2013-Present PPO documented as of this encounter Advance Directives Type Date Recorded Patient Clinical Mental Health Counselor Explanation Advance Directives and Living Will Power of [employer] Machine Helper
[2019-05-19] MEDS ORDERED: ONDANSETRON 4 MG/2 ML VIAL ONE (08:05)
[2019-05-19] MEDS ORDERED: MORPHINE 4 MG/ML SYR ONE (08:05)
[2019-05-19] MEDS ORDERED: NA CHLORIDE 0.9% 2,000 ML ONE (08:06)
[2019-05-19] MEDS ORDERED: PIPER/TAZO/NS 3.375gm 3.375 GM/100 ML BAG ONE (08:06)
[2019-05-19] MEDS ORDERED: VANCOMYCIN 1.5 GM in NA CHLORIDE 0.9% 500 ML IVPB ONE (08:15)
[2019-05-19 08:51] LABS: Absolute Lymphocytes (CBC) 0.9 K/uL (0.7-4.9); Basophils % 0.1 % (0-1.3); Hematocrit 45.3 % (36.0-45.0); Lymphocytes % 5.2 % (15.3-44.8); MPV 10.4 fL (7.6-11.3); RBC Red Blood Cell Count 5.34 M/uL (3.86-4.86)
[2019-05-19 08:54] LABS: Protime INR 0.96
[2019-05-19 09:07] LABS: ALT/SGPT 24 U/L (12-78); AST/SGOT 8 U/L (15-37); Albumin 3.5 g/dL (3.4-5.0); Alkaline Phosphatase 100 U/L (45-117); Amylase Level 30 U/L (25-115); BUN Blood Urea Nitrogen 15 mg/dL (7-18); Bicarbonate 27 mmol/L (21-32); Bilirubin Direct 0.1 mg/dL (0-0.2); Bilirubin Total 0.6 mg/dL (0.2-1.0); CKMB Creatine Kinase MB < 1.0 ng/mL (0.3-3.6); Creatine Phosphokinase 85 U/L (26-192); Glucose Level 189 mg/dL (74-106); Lipase 86 U/L (73-393); Potassium 3.8 mmol/L (3.5-5.1); Protein, Total 7.8 g/dL (6.4-8.2); Sodium Level 138 mmol/L (136-145); Troponin (Emerg Dept Use Only) < 0.02 ng/mL (0.0-0.045)
--- NOTE | 2019-05-19 09:26 | RAD REPORT ---
EXAM DESCRIPTION: RAD - Chest Single View - 05/19/2019 8:25 am CLINICAL HISTORY: Right upper extremity swelling and cellulitis, breast cancer, lymphedema COMPARISON: No comparisons TECHNIQUE: AP portable chest image was obtained 05/19/2019 8:25 am . FINDINGS: Lungs are clear. Heart and vasculature are normal. No measurable pleural effusion and no p neumothorax. No acute bony abnormality seen. No acute aortic finding. No mediastinal or hilar mass or lymphadenopathy evident. Numerous surgical clips from bilateral mastectomy overlie the chest. Trache a is in the midline. IMPRESSION: No acute cardiopulmonary process.
--- NOTE | 2019-05-19 09:52 | ER ---
Nurse's Notes [facility] Name: Jo Ann Conner Age: 58 yrs Sex: Female : 1960 Arrival Date: 05/19/2019 Time: 07:20 Bed 20 Private MD: Diagnosis: Sepsis: Lymphedema and cellulitis to right upper extremity Presentation: 05/19 07:31 Presenting complaint: Right arm swelling and redness upon waking today. Hx of hb lymphedema. Transition of care: patient was not received from another setting of care. Onset of symptoms was May 19, 2019. Risk Assessment: Do you want to hurt yourself or someone else? Patient reports no desire to harm self or others. Care prior to arrival: None. 07:31 Method Of Arrival: Ambulatory hb 07:31 Acuity: JHOANA 2 hb 10:16 Initial Sepsis Screen: Does the patient meet any 2 criteria? HR > 90 bpm. Does the tw2 patient have a suspected source of infection? No. Patient's initial sepsis screen is negative. Historical: - Allergies: 07:32 No Known Allergies; hb - Home Meds: 10:19 Toujeo Solostar 300u/ml 26 unit nightly [Active]; Ozempic 1 Mg dose pen pen 1 Injector tw2 once a week [Active]; rosuvastatin 5 mg Oral tab 2 tabs once daily [Active]; lisinopril 10 mg Oral tab 1 tab once daily [Active]; glimepiride 4 mg Oral tab 1 tab once daily [Active]; - PMHx: 07:32 breast cancer; Diabetes - IDDM; Hyperlipidemia; Hypertension; hb - PSHx: 07:32 Hysterectomy; Mastectomy, Left; Mastectomy, Right; hb - Immunization history:: Adult Immunizations up to date. - Coronavirus screen:: The patient has NOT traveled to [place] in the past 14 days. The patient has NOT had contact with known/suspected case of Coronavirus? Proceed with normal triage procedures. - Social history:: Smoking status: Patient denies any tobacco usage or history of. - Ebola Screening: : No symptoms or risks identified at this time. Screenin:31 Abuse screen: Denies threats or abuse. Nutritional screening: No deficits noted. tw2 Tuberculosis screening: No symptoms or risk factors identified. Fall Risk None identified. Assessment: 07:30 General: Appears in no apparent distress. obese, well groomed, Behavior is calm, tw2 cooperative, appropriate for age. Pain: Complains of pain in right arm. Neuro: Level of Consciousness is awake, alert, obeys commands, Oriented to person, place, time, situation. Cardiovascular: Heart tones S1 S2 Patient's skin is warm and dry. Respiratory: Airway is patent Respiratory effort is even, unlabored, Respiratory pattern is regular, symmetrical, Breath sounds are clear bilaterally. GI: No signs and/or symptoms were reported involving the gastrointestinal system. Abdomen is round non-distended, obese, Bowel sounds present X 4 quads. : No signs and/or symptoms were reported regarding the genitourinary system. EENT: No signs and/or symptoms were reported regarding the EENT system. Derm: Reports increased pain increased redness and swelling to RIGHT arm, pt reports lymph nodes removed from right arm after breast cancer then she had another surgery to put some lymph nodes from her lower extremity then placed in her arm to help this, she has had this problem before about 2 years ago pt says. Musculoskeletal: Range of motion: intact in all extremities. 09:58 Reassessment: Patient appears in no apparent distress at this time. No changes from tw2 previously documented assessment. Patient and/or family updated on plan of care and expected duration. Pain level reassessed. Patient is alert, oriented x 3, equal unlabored respirations, skin warm/dry/pink. 10:58 Reassessment: Patient appears in no apparent distress at this time. No changes from tw2 previously documented assessment. Patient and/or family updated on plan of care and expected duration. Pain level reassessed. Patient is alert, oriented x 3, equal unlabored respirations, skin warm/dry/pink. Vital Signs: 07:32 BP 182 / 95; Pulse 153; Resp 16; Temp 98.4; Pulse Ox 97% ; Weight 102.06 kg; Height 5 hb ft. 4 in. (162.56 cm); Pain 4/10; 08:30 BP 152 / 95; Pulse 149; Resp 17; Pulse Ox 98% on R/A; tw2 09:57 BP 127 / 87; Pulse 120; Resp 17; Pulse Ox 97% on R/A; tw2 10:57 BP 110 / 62; Pulse 110; Resp 17; Pulse Ox 99% on R/A; tw2 07:32 Body Mass Index 38.62 (102.06 kg, 162.56 cm) hb ED Course: 07:20 Patient arrived in ED. as 07:30 Jadyn Pereyra RN is Primary Nurse. tw2 07:31 Triage completed. hb 07:31 Bed in low position. Call light in reach. tw2 07:32 Giovanni Connor MD is Attending Physician. kdr 07:32 Arm band placed on. hb 08:20 Inserted saline lock: 20 gauge in left antecubital area, using aseptic technique. Blood tw2 collected. 08:32 Chest Single View XRAY In Process Unspecified. EDMS 09:39 UPPER EXTREMITY VENOUS UNILATE In Process Unspecified. EDMS 09:50 Emelia Ramos MD is Hospitalizing Provider. kdr 10:59 No provider procedures requiring assistance completed. Patient admitted, IV remains in tw2 place. Administered Medications: 08:17 Drug: Zofran 4 mg Route: IVP; Site: left antecubital; tw2 10:42 Follow up: Response: No adverse reaction tw2 08:20 Drug: morphine 4 mg Route: IVP; Site: left antecubital; tw2 10:36 Follow up: Response: No adverse reaction; Pain is decreased; RASS: Alert and Calm (0) tw2 08:30 Drug: NS 0.9% (30 ml/kg) 30 ml/kg Route: IV; Rate: bolus; Site: left antecubital; tw2 08:30 Drug: Zosyn 3.375 grams Route: IVPB; Infused Over: 60 mins; Site: left antecubital; tw2 10:00 Follow up: Response: No adverse reaction; IV Status: Completed infusion tw2 10:42 Drug: vancoMYCIN 1.5 grams Route: IVPB; Rate: calculated rate; Site: left antecubital; tw2 10:59 Follow up: IV Status: Infusion continued upon admission tw2 10:53 Drug: NS 0.9% (30 ml/kg) 30 ml/kg {Note: 2L NS total at this time administered.} Route: tw2 IV; Rate: bolus; Site: left antecubital; Outcome: 09:51 Decision to Hospitalize by Provider. kdr 10:59 Admitted to Med/surg accompanied by tech, via wheelchair, room 404, with chart, Report tw2 called to TATE Madrigal 10:59 Condition: stable 10:59 Instructed on the need for admit. 11:13 Patient left the ED. tw2 Signatures: Dispatcher [employer] Giovanni Ram MD MD kdr Martinez, Amelia as Baxter, Heather, RN RN Jadyn Pereyra RN RN tw2
--- NOTE | 2019-05-19 09:52 | EDPHYS ---
Physician Documentation [facility] Name: Jo Ann Conner Age: 58 yrs Sex: Female : 1960 Arrival Date: 05/19/2019 Time: 07:20 Bed 20 Private MD: ED Physician Giovanni Connor HPI: 05/19 07:43 This 58 yrs old Female presents to ER via Ambulatory with complaints of Arm kdr Swelling, hot and red. 07:43 The patient presents with cellulitis of the right arm, the patient presents with a kdr swollen area of the right arm. Description: erythematous, hot, swollen, tense, warm. Onset: The symptoms/episode began/occurred this morning, at 03:30. 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 Associated signs and symptoms: Pertinent positives: fever, swelling. Modifying factors: the symptoms are alleviated by nothing, the symptoms are aggravated by movement. Severity of symptoms: At their worst the symptoms were moderate, severe, in the emergency department the symptoms are unchanged. The patient has experienced similar episodes in the past, a few times, Last time was about two years ago. The patient has not recently seen a physician, Normally sees her doctors in [place]. The patient had breast cancer in the past and has since had chronic lymphedema to her right upper extremity. The lats time she had this similar problem was about two years ago - seen here and admitted. Historical: - Allergies: 07:32 No Known Allergies; hb - Home Meds: 10:19 Toujeo Solostar 300u/ml 26 unit nightly [Active]; Ozempic 1 Mg dose pen pen 1 Injector tw2 once a week [Active]; rosuvastatin 5 mg Oral tab 2 tabs once daily [Active]; lisinopril 10 mg Oral tab 1 tab once daily [Active]; glimepiride 4 mg Oral tab 1 tab once daily [Active]; - PMHx: 07:32 breast cancer; Diabetes - IDDM; Hyperlipidemia; Hypertension; hb - PSHx: 07:32 Hysterectomy; Mastectomy, Left; Mastectomy, Right; hb - Immunization history:: Adult Immunizations up to date. - Coronavirus screen:: The patient has NOT traveled to [place] in the past 14 days. The patient has NOT had contact with known/suspected case of Coronavirus? Proceed with normal triage procedures. - Social history:: Smoking status: Patient denies any tobacco usage or history of. - Ebola Screening: : No symptoms or risks identified at this time. ROS: 07:43 Constitutional: Negative for objective fever, chills, and no weight loss, Eyes: kdr Negative for injury, pain, redness, and discharge, Neck: Negative for injury, pain, and swelling, Cardiovascular: Negative for chest pain, palpitations, and edema, Respiratory: Negative for shortness of breath, cough, wheezing, and pleuritic chest pain, Abdomen/GI: Negative for abdominal pain, nausea, vomiting, diarrhea, and constipation, Back: Negative for injury and pain, : Negative for injury, bleeding, discharge, and swelling, Neuro: Negative for headache, weakness, numbness, tingling, and seizure activity. Psych: Negative for depression, anxiety, suicide ideation, homicidal ideation, and hallucinations, Allergy/Immunology: Negative for hives, rash, and allergies, Endocrine: Negative for neck swelling, polydipsia, polyuria, polyphagia, and marked weight changes, Hematologic/Lymphatic: Negative for swollen nodes, abnormal bleeding, and unusual bruising. 07:43 MS/extremity: Positive for decreased range of motion, pain, swelling, tenderness, warmth, of the right arm, Negative for abrasion. Exam: 07:43 Constitutional: This is a well developed, well nourished patient who is awake, alert, kdr and in no acute distress. Head/Face: Normocephalic, atraumatic. Eyes: Pupils equal round and reactive to light, extra-ocular motions intact. Lids and lashes normal. Conjunctiva and sclera are non-icteric and not injected. Cornea within normal limits. Periorbital areas with no swelling, redness, or edema. Neck: Trachea midline, no thyromegaly or masses palpated, and no cervical lymphadenopathy. Supple, full range of motion without nuchal rigidity, or vertebral point tenderness. No Meningismus. Chest/axilla: Normal chest wall appearance and motion. Nontender with no deformity. No lesions are appreciated. Cardiovascular: Regular rate and rhythm with a normal S1 and S2. No gallops, murmurs, or rubs. Normal PMI, no JVD. No pulse deficits. Respiratory: Lungs have equal breath sounds bilaterally, clear to auscultation and percussion. No rales, rhonchi or wheezes noted. No increased work of breathing, no retractions or nasal flaring. Abdomen/GI: Soft, non-tender, with normal bowel sounds. No distension or tympany. No guarding or rebound. No evidence of tenderness throughout. Back: No spinal tenderness. No costovertebral tenderness. Full range of motion. Neuro: Awake and alert, GCS 15, oriented to person, place, time, and situation. Cranial nerves II-XII grossly intact. Motor strength 5/5 in all extremities. Sensory grossly intact. Cerebellar exam normal. Normal gait. Psych: Awake, alert, with orientation to person, place and time. Behavior, mood, and affect are within normal limits. 07:43 Skin: cellulitis, that is moderate, that is severe, confluent, on the right arm. Vital Signs: 07:32 BP 182 / 95; Pulse 153; Resp 16; Temp 98.4; Pulse Ox 97% ; Weight 102.06 kg; Height 5 hb ft. 4 in. (162.56 cm); Pain 4/10; 08:30 BP 152 / 95; Pulse 149; Resp 17; Pulse Ox 98% on R/A; tw2 09:57 BP 127 / 87; Pulse 120; Resp 17; Pulse Ox 97% on R/A; tw2 10:57 BP 110 / 62; Pulse 110; Resp 17; Pulse Ox 99% on R/A; tw2 07:32 Body Mass Index 38.62 (102.06 kg, 162.56 cm) hb MDM: 07:43 Data reviewed: vital signs, nurses notes, lab test result(s), radiologic studies. kdr Counseling: I had a detailed discussion with the patient and/or guardian regarding: the historical points, exam findings, and any diagnostic results supporting the discharge/admit diagnosis, lab results, radiology results, the need for further work-up and treatment in the hospital. 09:51 Patient medically screened. kdr 05/19 07:42 Order name: Amylase, Serum; Complete Time: 09:46 kdr 05/19 07:42 Order name: Basic Metabolic Panel; Complete Time: 09:46 kdr 05/19 07:42 Order name: Blood Culture Adult (2) kdr 05/19 07:42 Order name: CBC with Diff kdr 05/19 07:42 Order name: Ckmb; Complete Time: 09:46 kdr 05/19 07:42 Order name: CPK; Complete Time: 09:46 kdr 05/19 07:42 Order name: Lactate; Complete Time: 09:46 kdr 05/19 07:42 Order name: LFT's; Complete Time: 09:46 kdr 05/19 07:42 Order name: Lipase; Complete Time: 09:46 kdr 05/19 07:42 Order name: Procalcitonin; Complete Time: 09:46 kdr 05/19 07:42 Order name: Protime (+inr); Complete Time: 09:46 kdr 05/19 07:42 Order name: Ptt, Activated; Complete Time: 09:46 kdr 05/19 07:42 Order name: Troponin (emerg Dept Use Only); Complete Time: 09:46 kdr 05/19 07:42 Order name: Urine Microscopic Only kdr 05/19 07:42 Order name: Chest Single View XRAY; Complete Time: 09:46 kdr 05/19 07:42 Order name: Accucheck; Complete Time: 10:25 kdr 05/19 07:42 Order name: Cardiac monitoring; Complete Time: 10:25 kdr 05/19 07:42 Order name: EKG - Nurse/Tech; Complete Time: 10:26 kdr 05/19 07:42 Order name: IV Saline Lock - Large Bore; Complete Time: 10:26 kdr 05/19 07:42 Order name: Labs collected and sent; Complete Time: 10:26 kdr 05/19 08:47 Order name: Glucose, Ancillary Testing; Complete Time: 09:46 EDMS 05/19 09:21 Order name: UPPER EXTREMITY VENOUS UNILATE EDMS 05/19 10:06 Order name: CBC Smear Scan EDMS 05/19 10:55 Order name: Urine Dipstick--Ancillary (enter results) eb 05/19 07:42 Order name: O2 Per Protocol; Complete Time: 10:26 kdr 05/19 07:42 Order name: O2 Sat Monitoring; Complete Time: 10:25 kdr 05/19 07:42 Order name: Urine Dipstick-Ancillary (obtain specimen); Complete Time: 10:53 kdr 05/19 08:46 Order name: Labs - recollect needed: lactic acid; Complete Time: 09:59 dh4 Administered Medications: 08:17 Drug: Zofran 4 mg Route: IVP; Site: left antecubital; tw2 10:42 Follow up: Response: No adverse reaction tw2 08:20 Drug: morphine 4 mg Route: IVP; Site: left antecubital; tw2 10:36 Follow up: Response: No adverse reaction; Pain is decreased; RASS: Alert and Calm (0) tw2 08:30 Drug: NS 0.9% (30 ml/kg) 30 ml/kg Route: IV; Rate: bolus; Site: left antecubital; tw2 08:30 Drug: Zosyn 3.375 grams Route: IVPB; Infused Over: 60 mins; Site: left antecubital; tw2 10:00 Follow up: Response: No adverse reaction; IV Status: Completed infusion tw2 10:42 Drug: vancoMYCIN 1.5 grams Route: IVPB; Rate: calculated rate; Site: left antecubital; tw2 10:59 Follow up: IV Status: Infusion continued upon admission tw2 10:53 Drug: NS 0.9% (30 ml/kg) 30 ml/kg {Note: 2L NS total at this time administered.} Route: tw2 IV; Rate: bolus; Site: left antecubital; Disposition: 05/19/19 09:51 Hospitalization ordered by Emelia Ramos for Inpatient Admission. Preliminary diagnosis is Sepsis: Lymphedema and cellulitis to right upper extremity. - Bed requested for Telemetry/MedSurg (Inpatient). - Status is Inpatient Admission. tw2 - Condition is Fair. - Problem is new. - Symptoms have improved. Signatures: Dispatcher [employer] EDNE Giovanni Connor MD MD kdr Mickail, Joel, PA PA jmm Baxter, Heather, RN RN Jadyn Posadas RN RN tw2 Maricarmen Stock Donald 4 Corrections: (The following items were deleted from the chart) 09:21 08:53 Extremity Venous Uni [email or web address] ordered. EDNE EDNE 10:44 09:51 Hospitalization Ordered by Emelia Ramos MD for Inpatient Admission. Preliminary eb diagnosis is Sepsis: Lymphedema and cellulitis to right upper extremity. Bed requested for Telemetry/MedSurg (Inpatient). Status is Inpatient Admission. Condition is Fair. Problem is new. Symptoms have improved. kdr 11:13 10:44 05/19/2019 09:51 Hospitalization Ordered by Emelia Ramos MD for Inpatient tw2 Admission. Preliminary diagnosis is Sepsis: Lymphedema and cellulitis to right upper extremity. Bed requested for Telemetry/MedSurg (Inpatient). Status is Inpatient Admission. Condition is Fair. Problem is new. Symptoms have improved. eb
[2019-05-19 10:06] LABS: Blood Morphology Comment NOT SEEN (NOT SEEN); Platelet Estimate ADEQ; Urine White Blood Cell Casts OK
--- NOTE | 2019-05-19 10:35 | RAD REPORT ---
EXAM DESCRIPTION: US - UPPER EXTREMITY VENOUS UNILATE - 05/19/2019 9:36 am CLINICAL HISTORY: Right upper extremity swelling COMPARISON: 2018 FINDINGS: The right internal jugular, subclavian, brachial, axillary, cephalic, basilic, radial and ulnar veins demonstrate phasic signal. The veins are generally compressible. Doppler demonstrates good flow IMPRESSION: No evidence of thrombus involving the right upper extremity
[2019-05-19 11:30] LABS: Urine Blood NEGATIVE (NEG); Urine Glucose NEGATIVE (NEG); Urine Protein NEGATIVE (NEG); Urine pH 5.5 (5.0-7.0)
[2019-05-19 11:35] VITALS: BMI 37.4
[2019-05-19] MEDS: INSULIN -REGULAR HUMAN 50 UNIT/0.5 ML ML SQ SCH ×3 (11:52→20:28)
[2019-05-19] MEDS: NA CHLORIDE 0.9% 1,000 ML IV SCH ×3 (11:52→20:28)
[2019-05-19] MEDS ORDERED: VANCOMYCIN/NS 1 gm 1 GM/250 ML BAG IVPB SCH (11:52)
[2019-05-19] MEDS: CEFEPIME/SWI 2gm 2 GM/20 ML SYR IV SCH ×2 (12:24→20:27)
[2019-05-19 13:06] LABS: Urine Amorphous Sediment 2+ /HPF (NONE SEEN); Urine Bacteria <20 /HPF (<20); Urine Culture Reflex Order NOT NEEDED; Urine RBC <5 /HPF (NONE SEEN)
[2019-05-19] MEDS ORDERED: NA CHLORIDE 0.9% 1,000 ML IV ONE (14:49)
--- NOTE | 2019-05-19 15:37 | P.INFCA ---
Sepsis Focused Assessment - Focused Assessment Complete? Sepsis Focused Assessment Completed?: Yes - Sepsis Screen Result Severe Sepsis: Negative Septic Shock: Negative - Vital Signs Reviewed: Yes Temperature: 97.9 F Heart rate: 110 Blood Pressure: 119/62 Respiratory Rate: 16 O2 Sat by Pulse Oximetry: 94 - Examination Date exam was performed: 05/19/19 Time exam was performed: 15:36 Heart: S1, S2, Tachycardia Lungs: Clear bilaterally Peripheral pulses: 3+ Normal Peripheral pulse location: Radial Capillary refill: <2 Seconds Skin examination: Normal turgor
[2019-05-19] MEDS: INSULIN LISPRO 100 UNIT/1 ML SQ SCH (16:37)
[2019-05-19] MEDS: ACETAMINOPHEN 500 MG TAB PO PRN (18:20)
[2019-05-19] MEDS: ROSUVASTATIN 10 MG TAB PO SCH (20:27)
[2019-05-19] MEDS ORDERED: ROSUVASTATIN CALCIUM PO SCH (21:00)
[2019-05-19] MEDS ORDERED: INSULIN LISPRO 6 UNIT SQ SCH (21:00)
[2019-05-19] MEDS ORDERED: CEFEPIME 2 GM VIAL IV SCH (21:00)
--- NOTE | 2019-05-19 23:25 | HP ---
Date of Admission: 05/19/2019 Chief Complaint: Right arm swelling. Code Status: Full. Primary Care Physician: In [place], out of town. History Of Present Illness: Patient is a 58-year-old female with past medical history of diabetes me llitus type 2, insulin requiring, who was in her usual state of health until 2 days prior to admissio n when the patient had sudden onset of subjective fever, chills, and swelling of her right upper extr emity. Patient has had previous history of breast cancer with lymph node dissection and has had cell ulitis and swelling of her right upper extremity previously. Patient noted worsening erythema, warmt h, and pain, therefore came into the ER for further evaluation. Her symptoms are constant, moderate, progressively worsening. She denied any trauma to the arm or any insect bite. Upon arrival, slava mckeon's vital signs showed heart rate of 153, blood pressure was 182/95, white blood cell count was 17,00 0. Lactate was elevated at 2.6. Procalcitonin was 1.78. Patient was septic. Patient was given nor mal saline bolus 2 L and then referred for admission. When seen in the ER, she was awake, alert, diana ented x3, in some mild distress. Past Medical History: Breast cancer, status post mastectomy and reconstruction; hypertension; hyperl ipidemia; diabetes mellitus type 2, insulin requiring. Surgical History: Bilateral mastectomy and subsequent reconstruction of the breast, lymph node disse ction on the right, hysterectomy. Allergies: NO KNOWN DRUG ALLERGIES. Medications: List reviewed. Family History: Father had diabetes and stroke. Mother had diabetes and non-Hodgkin lymphoma. Brot her had heart problems. Social History: Patient denies any tobacco use. Drinks alcohol socially. No illicit drug use. Debbie hassan is , lives at home independent. Review of Systems: Ten-point system reviewed, negative except as per HPI. Physical Examination: Vital Signs: Temperature 98.4, heart rate 153, blood pressure 182/95, respirations 16, O2 of 97% on room air. General: Awake, alert, oriented x3, ill-appearing female, obese, BMI 37.4. HEENT: Normocephalic, atraumatic. PERRLA. EOMI. Moist mucous membranes. Oropharynx is clear. No rmal dentition. Conjunctivae anicteric. Neck: Supple. No JVD. Trachea midline. CV: S1, S2. Sinus tachycardia. Peripheral pulses present. No murmurs. Respiratory: Clear to auscultation bilaterally. No wheezing or stridor. No use of accessory muscle s. Gastrointestinal: Abdomen is soft. No tenderness to palpation. No rebound or guarding. Extremities: No clubbing or cyanosis. Patient has right upper extremity edema, swelling. No lower extremity swelling. No calf tenderness. Neurologic: Cranial nerves 2 through 12 intact grossly. No focal neurological deficit. Speech is n ormal. Skin: Erythema of the right upper extremity. Warm to touch, swollen. Psychiatric: Mood is okay. Affect is full. Insight and judgment are good. Laboratory Data: Sodium 138, potassium 3.8, chloride 104, CO2 of 27, BUN 15, creatinine 0.81, glucos e 189, lactate 2.6, calcium 9.3, albumin 3.5. Procalcitonin 1.78. INR 0.96. WBC 17.9, H and H 14.9 and 45.3, platelets 201, neutrophils 92%. UA is negative. Chest x-ray, personally reviewed, shows no acute cardiopulmonary process. Upper extremity venous jovani dy shows no evidence of thrombus involving the right upper extremity. Assessment: 58-year-old female with: 1.Acute right upper extremity cellulitis. We will start on IV antibiotics with vancomycin and cefep terri. Blood cultures have been obtained. We will keep the right upper extremity elevated. We will h ave nurse dali the level of erythema. Consult ID. 2.Sepsis secondary to above. Patient has received 2 L of normal saline bolus. Cultures have been o btained. Patient was tachycardic, rate of 153. Patient had subjective fevers at home. Procalcitoni n, white blood cell count elevated, as well as lactate. We will repeat lactate in 2 hours. Continue with sepsis bundle. 3.Diabetes mellitus, type 2, with hyperglycemia. We will continue with home dose of insulin. Start on sliding scale insulin and monitor blood glucose levels. 4.Essential hypertension, stable. We will continue home medications as appropriate. 5.Mixed hyperlipidemia. Continue statin. 6.Obesity, BMI 37.4. 7.Deep vein thrombosis prophylaxis, Lovenox. Plan: Admit patient to Med-Surg, place as inpatient. Length of stay greater than 2 midnights. SA/MODL Voice ID: [id number]
[2019-05-20] MEDS: VANCOMYCIN 1.75 GM in NA CHLORIDE 0.9% 500 ML IVPB SCH ×2 (00:15→17:34)
[2019-05-20 06:54] LABS: BUN Blood Urea Nitrogen 8 mg/dL (7-18); Bicarbonate 26 mmol/L (21-32); Glucose Level 179 mg/dL (74-106); Potassium 3.8 mmol/L (3.5-5.1); Sodium Level 140 mmol/L (136-145)
[2019-05-20] MEDS: INSULIN -REGULAR HUMAN 50 UNIT/0.5 ML ML SQ SCH ×2 (07:30→11:30)
[2019-05-20 07:33] LABS: Absolute Lymphocytes (CBC) 1.8 K/uL (0.7-4.9); Basophils % 0.2 % (0-1.3); Lymphocytes % 13.2 % (15.3-44.8); MPV 9.8 fL (7.6-11.3); RBC Red Blood Cell Count 4.34 M/uL (3.86-4.86)
[2019-05-20] MEDS: INSULIN LISPRO 100 UNIT/1 ML SQ SCH ×3 (08:00→17:35)
[2019-05-20] MEDS: PIOGLITAZONE 15 MG TAB PO SCH (08:24)
[2019-05-20] MEDS: ONDANSETRON 4 MG/2 ML VIAL IV PRN (08:24)
[2019-05-20] MEDS: CEFEPIME/SWI 2gm 2 GM/20 ML SYR IV SCH ×2 (08:25→20:39)
[2019-05-20] MEDS: NA CHLORIDE 0.9% 1,000 ML IV SCH ×2 (08:28→20:39)
[2019-05-20] MEDS: ACETAMINOPHEN 500 MG TAB PO PRN ×2 (08:38→20:37)
[2019-05-20] MEDS ORDERED: INSULIN GLARGINE 100 UNITS/ML SQ SCH (09:00)
[2019-05-20] MEDS ORDERED: INSULIN GLARGINE HUM REC ANLOG 48 UNIT SQ SCH (09:00)
--- NOTE | 2019-05-20 12:11 | PN ---
Date of Progress Note: 05/20/2019 Subjective: Patient is seen and examined. Chart reviewed and case discussed with RN. Patient's red ness is slightly better. Patient does report headache and some nausea. Medication: List reviewed. Physical Examination: Vital Signs: Temperature 98.1, heart rate 104, blood pressure 142/75, respirations 20, O2 of 93% on room air. General: Awake, alert, oriented x3, and some mild distress, ill-appearing obese female. BMI 37. CV: S1, S2. Sinus tachycardia. Peripheral pulses present. Respiratory: Moving air well bilaterally. No wheezing or stridor. No use of accessory muscles. Gastrointestinal: Abdomen is soft, nontender, nondistended. Positive bowel sounds. Extremities: No clubbing, cyanosis. Patient has right upper extremity edema. Neurologic: Nonfocal. Skin: Patient has erythema of the right upper extremity, warm to touch. Laboratory Data: Sodium 140, potassium 3.8, chloride 107, CO2 of 26, BUN 8, creatinine 0.62, glucose 179. Lactate is 1.5, calcium 8.3. WBC 14, H and H 12.1 and 37, platelets 165, neutrophils 80%. Bl ood cultures, no growth to date. Assessment: A 58-year-old female with; 1.Sepsis secondary to right upper extremity cellulitis. We will continue on IV fluids. Patient is still tachycardic, rate in the 100. White blood cell count still elevated trending down, however, la ctate now normalized on day 2. Continue with IV antibiotics and follow up on cultures. Gram-stain s hows gram-positive cocci. Patient may be bacteremic. 2.Acute right upper extremity cellulitis, improving slowly. Continue to elevate right upper extremi ty, redness is slightly improved. Continue with broad-spectrum IV antibiotics. Cultures pending at this time. Preliminary Gram-stain is gram-positive cocci. 3.Diabetes mellitus type 2, insulin requiring with hyperglycemia. We will continue home dose and sl iding scale insulin. 4.Essential hypertension, stable. 5.Mixed hyperlipidemia. Continue statin. 6.Obesity, BMI 37.4. 7.DVT prophylaxis with Lovenox. Plan: Disposition likely discharge in the next 48 hours depending on clinical response. We will nee d to monitor blood cultures for final ID and sensitivity. Patient may be bacteremic. SA/MODL Voice ID: [id number] Report ID: [id number]
--- NOTE | 2019-05-20 16:26 | CON ---
History Of Present Illness: Patient is a 58-year-old female coming in with cellulitis of right arm. Patient denies any headache, nausea, vomiting, chest pain, abdominal pain, constipation, or diarrhea . Has significant history of right breast cancer, which has been in remission for 15 years. She did have lymph node removed and chemotherapy after that and the patient has no other problems except rec urrent infection and she gets cellulitis to the right arm. Patient also has significant history of d iabetes mellitus, hyperlipidemia. Denies any problems feeling much better today. Past Medical History: As per HPI. Past Surgical History: Bilateral mastectomy and subsequent reconstruction of the breast, lymph node dissection on the right side, hysterectomy. Social History: Nonsmoker, nondrinker. Family History: Diabetes mellitus and stroke and non-Hodgkin lymphoma, heart problems. Medications: Includes cefepime and vancomycin. Review of Systems: A 10-point review was performed. Physical Examination: General: This is a 58-year-old female, lying in bed, not in any acute cardiopulmonary distress. Vital Signs: Temperature 97.7, pulse 89, respirations 20, blood pressure 134/70. HEENT: Unremarkable. Neck: Supple. Lungs: Clear to auscultation. Heart: S1, S2. Regular. Abdomen: Soft, nontender. Bowel sounds present. Extremities: Right upper extremity with 3+ nonpitting edema. Erythematous changes noted. Laboratory Data: Shows WBC 14,000, hemoglobin 12.1, platelets are 155. Chemistry shows sodium 140, potassium 3.8, chloride 107, bicarb 26, BUN 8, creatinine 0.6, glucose 179. Lactic acid is 2.8 down to 1.5. Procalcitonin was 17.8. Cultures are still negative in 24 hours. Doppler of the right arm shows no DVT. Chest x-ray is negative for any infiltrate. Assessment And Plan: A 58-year-old female with significant history of diabetes mellitus and right-si ded breast cancer with lymph node dissection, coming in with cellulitis of right arm and history of l ymphedema to the right arm. Also increase in her chances to getting recurrent infections. We will c ontinue antibiotic total course of 2 weeks. Consider changing to oral doxycycline and Cipro on disch arge. We will keep arms elevated if possible. We will follow the patient as needed. Thank you Dr. Raoms for consult. NF/NIRALI Voice ID: [id number] Report ID: [id number]
--- NOTE | 2019-05-20 16:30 | EKG ---
Test Date: 2019-05-19 Test Time: 11:07:03 Alternative Energy Engineer: ZENON MEASUREMENT RESULTS: Intervals: Rate: 109 NH: 124 QRSD: 80 QT: 348 QTc: 468 [place]: P: 52 NH: 124 QRS: 9 T: 41 INTERPRETIVE STATEMENTS: Sinus tachycardia Cannot rule out Anterior infarct, age undetermined Abnormal ECG No previous ECG available for comparison Electronically Signed On 05-20-19 16:27:56 TRAVEL CONSULTANT by Ron Smiley
[2019-05-20] MEDS: ENOXAPARIN 40 MG/0.4 ML SQ SCH (18:35)
[2019-05-20] MEDS: INSULIN GLARGINE 100 UNITS/ML SQ SCH (20:38)
[2019-05-20] MEDS: ROSUVASTATIN 10 MG TAB PO SCH (20:38)
[2019-05-21 05:42] LABS: Absolute Lymphocytes (CBC) 2.1 K/uL (0.7-4.9); Basophils % 0.6 % (0-1.3); Hematocrit 36.4 % (36.0-45.0); Lymphocytes % 28.7 % (15.3-44.8); MPV 9.7 fL (7.6-11.3); RBC Red Blood Cell Count 4.29 M/uL (3.86-4.86)
[2019-05-21 06:02] LABS: BUN Blood Urea Nitrogen 8 mg/dL (7-18); Bicarbonate 27 mmol/L (21-32); Glucose Level 187 mg/dL (74-106); Potassium 3.9 mmol/L (3.5-5.1); Sodium Level 140 mmol/L (136-145)
[2019-05-21] MEDS: INSULIN LISPRO 100 UNIT/1 ML SQ SCH ×3 (08:14→16:46)
[2019-05-21] MEDS: PIOGLITAZONE 15 MG TAB PO SCH (08:14)
[2019-05-21] MEDS: CEFEPIME/SWI 2gm 2 GM/20 ML SYR IV SCH ×2 (08:14→22:43)
[2019-05-21] MEDS: NA CHLORIDE 0.9% 1,000 ML IV SCH ×2 (08:23→09:00)
--- NOTE | 2019-05-21 11:55 | PN ---
Date of Progress Note: 05/21/2019 Subjective: Patient is seen and examined. Chart reviewed and case discussed with RN. Patient states her swelling is improved. Pain is resolved. Medications: List reviewed. Physical Examination: Vital Signs: Temperature 98, heart rate 95, blood pressure 152/61, respirations 18, O2 of 96% on room air. General: Awake, alert, oriented x3. Mildly ill-appearing female, not in any acute distress. Obese. BMI 37. CV: S1, S2. Regular rate and rhythm. Peripheral pulses present. Respiratory: Moving air well bilaterally. No wheezing or stridor. No use of accessory muscles. Gastrointestinal: Abdomen is soft, nontender, nondistended. Positive bowel sounds. Extremities: No clubbing, cyanosis. Patient has edema of the right upper extremity. Neurologic: Nonfocal. Laboratory Data: Sodium 140, potassium 3.9, chloride 108, CO2 of 27, BUN 8, creatinine 0.53, glucose 187, calcium 8.4. WBC 7.5, H and H 12.1 and 36.4, platelets 142, neutrophils 61%. Blood cultures, Gram stain showing gram- positive cocci in pairs and chains as well as beta-hemolytic strep. Assessment: A 58-year-old female with: 1. Sepsis secondary to right upper extremity cellulitis. Continue with IV antibiotics. We will adjust IV fluids. Patient's tachycardia is improved slightly. Blood cultures now showing gram-positive cocci beta-hemolytic streptococci. We will await final cultures WBC count now normalized. Afebrile. 2. Acute right upper extremity cellulitis, improving. Edema has improved, but still not completely resolved. Erythema is significantly improved. 3. Bacteremia gram positive cocci and beta-hemolytic streptococci. Follow up on final culture results. Appreciate ID input. 4. Diabetes mellitus type 2, insulin requiring with hyperglycemia. We will continue home dose of insulin. Monitor blood glucose levels. 5. Essential hypertension, stable. 6. Mixed hyperlipidemia. Continue statin. 7. Obesity, BMI 37.4. 8. Deep venous thrombosis prophylaxis. Continue Lovenox. Plan: Await final cultures. Patient likely bacteremic, needs echocardiogram to rule out vegetation. May need long-term IV antibiotics set up. We will discuss further with ID once culture results are finalized. /MODL Voice ID: [id number] Report ID: [id number] MTDD
[2019-05-21] MEDS: VANCOMYCIN 1.75 GM in NA CHLORIDE 0.9% 500 ML IVPB SCH (12:17)
[2019-05-21] MEDS ORDERED: VANCOMYCIN 2 GM in NA CHLORIDE 0.9% 500 ML IVPB SCH (13:00)
[2019-05-21] MEDS: ENOXAPARIN 40 MG/0.4 ML SQ SCH (16:48)
[2019-05-21] MEDS: NYSTATIN 500,000 UNIT/5 ML UDC PO SCH ×2 (17:16→22:42)
[2019-05-21] MEDS: ONDANSETRON 4 MG/2 ML VIAL IV PRN (17:18)
[2019-05-21] MEDS: ROSUVASTATIN 10 MG TAB PO SCH (22:43)
[2019-05-21] MEDS: INSULIN GLARGINE 100 UNITS/ML SQ SCH (22:44)
[2019-05-21] MEDS: ACETAMINOPHEN 500 MG TAB PO PRN (22:49)
[2019-05-22 04:50] LABS: BUN Blood Urea Nitrogen 13 mg/dL (7-18); Bicarbonate 28 mmol/L (21-32); Glucose Level 218 mg/dL (74-106); Sodium Level 141 mmol/L (136-145)
[2019-05-22] MEDS: NA CHLORIDE 0.9% 1,000 ML IV SCH (05:16)
[2019-05-22] MEDS ORDERED: VANCOMYCIN 2 GM in NA CHLORIDE 0.9% 500 ML IVPB SCH (06:00)
[2019-05-22 06:11] LABS: Absolute Lymphocytes (CBC) 2.6 K/uL (0.7-4.9); Basophils % 0.4 % (0-1.3); Lymphocytes % 35.8 % (15.3-44.8); MPV 10.6 fL (7.6-11.3); RBC Red Blood Cell Count 4.24 M/uL (3.86-4.86)
[2019-05-22] MEDS: INSULIN LISPRO 100 UNIT/1 ML SQ SCH (08:22)
[2019-05-22] MEDS: CEFEPIME/SWI 2gm 2 GM/20 ML SYR IV SCH (08:23)
[2019-05-22] MEDS: NYSTATIN 500,000 UNIT/5 ML UDC PO SCH (08:24)
[2019-05-22] MEDS: PIOGLITAZONE 15 MG TAB PO SCH (08:24)
[2019-05-22 08:37] VITALS: BP 148/83; TEMP 98.6
[2019-05-22 10:36] VITALS: O2SAT 96
--- NOTE | 2019-05-23 01:01 | DS ---
Date of Discharge: 05/22/2019 Exhibit Display Representative: Dr. Chisholm with Infectious Disease. Admitting Diagnoses: 1.Acute right upper extremity cellulitis. 2.Sepsis. 3.Diabetes mellitus type 2 with hyperglycemia. 4.Essential hypertension. 5.Mixed hyperlipidemia. 6.Obesity, BMI 37.4. Discharge Diagnoses: 1.Sepsis secondary to right upper extremity cellulitis, improving. 2.Acute right upper extremity cellulitis, improved. 3.Bacteremia with beta-hemolytic strep. Final culture is pending. 4.Diabetes mellitus type 2 insulin requiring with hyperglycemia. 5.Essential hypertension, stable. 6.Mixed hyperlipidemia, on statin. 7.Obesity, BMI 37.4. Hospital Course: Patient is a 58-year-old female with past medical history of diabetes, obesity, his tory of breast cancer with previous episode of right upper extremity cellulitis where she had the lym ph node dissection. Patient comes in again with erythema, warmth, and pain to that upper extremity c onsistent with cellulitis. Patient was started on broad-spectrum IV antibiotics. Cultures were obta ined. She responded well to IV antibiotics. Her upper extremity was elevated above heart level. Sw elling went down. Patient did not have any further erythema. She did not spike any fevers and remai neal afebrile. Her white blood cell count normalized. Sepsis improved. Her blood culture grew out b eta-hemolytic strep, 1 out of 4 bottles. Patient's Doppler study of the upper extremity showed no ev idence of thrombus. Patient was seen by Dr. Chisholm with Infectious Disease and was recommended to be discharged on oral antibiotics with doxycycline and Cipro. Patient did well. She was then cleared for discharge and was sent home in a stable condition. Activity: As tolerated. Medications: As per medication reconciliation list. Followup: Follow up with primary care physician in 2 to 3 days. Follow up with Infectious Disease, Dr. Chisholm, in 2 weeks. Return to ER for worsening condition. Diet: Diabetic. Activity: As tolerated. It should be noted the patient did develop some thrush and will be on a course of nystatin. Patient to continue to monitor her blood glucose levels and continue with her followup with her endocrinologi st as scheduled. She also does not have a PCP. She will need to establish care with 1, used to go t o Dr. Agata Muniz in the past. Encouraged to follow up with PCP. She was also encouraged to continu e with chronic lymphedema treatment of her right upper extremity to avoid further episodes of celluli tis. Physical Examination: General: Awake, alert, oriented x3. No acute distress. Obese female. CV: S1, S2. Respiratory: Moving air well bilaterally. Abdomen: Soft, nontender, nondistended. Positive bowel sounds. Extremities: No clubbing, cyanosis. Patient has minimal edema of the right upper extremity, signifi cantly improved. Neuro: Nonfocal. Total time spent discharging patient was 38 minutes. /NIRALI Voice ID: [id number] Report ID: [id number]
== END 2019-05-22 10:10 | disposition home or self-care (01) | DRG 872 ==
LOC: ER 07:17 → ERHOLD 10:23 → 4TH 11:01
PROVIDERS: ADMIT Family Medicine; ATTEND Family Medicine
DX: A41.9 Sepsis, unspecified organism (principal); L03.113 Cellulitis of right upper limb; E11.65 Type 2 diabetes mellitus with hyperglycemia; I10 Essential (primary) hypertension; E78.2 Mixed hyperlipidemia; E66.9 Obesity, unspecified; Z68.37 Body mass index [BMI] 37.0-37.9, adult; Z85.3 Personal history of malignant neoplasm of breast; B37.9 Candidiasis, unspecified
CPT/HCPCS: 36415; 71045; 80048; 80076; 80202; 81003; 81015; 82150; 82550; 82553; 82947; 83605; 83690; 84145; 84484; 85025; 85610; 85730; 87040; 87077; 87186; 87205; 93005; 93971; 94760; 96365; 96367; 96375; 99285; J0692; J1650; J1815; J2405; J2543; J7030; J7040